=== PATIENT | male | born 1955 | race Caucasian/White ===

== ENCOUNTER 2016-11-05 20:54 | Inpatient (IN) | payer BC ==
--- NOTE | 2016-11-05 23:06 | DR.GENAD ---
HPI - Complaint/Symptoms Chief Complaint Doctors Comments: Patient complains of infection in his left foot with little toe infection getting worst for the past week. States he went to see his foot doctor three days ago and he drained his left foot and put him on Flagyl, Augmentin and Bactroban oint but it has gotten worst. States he was hospitalized eleven days for infection in his great toe few months ago and almost lost his toes then. He has been having fever, chills but denies nausea, vomiting cold or cough. State he is a patient of Dr. New and he has been taking his insulin and medicine as directed. He noticed a large red rash on the lower left abdomen the past 24 hours and he denies any recent trauma other than injection self with insulin. States he had a tetanus the last time he was in the hospital about 4-5 months ago. Chief Complaint:: "I got a toe about to rott off. I have been here before with another toe, but this is a different toe (little toe on left foot). I also have a rash on my left side. I don't know if it is a side effect of some medicine that Dr. Estrella has given me or what." Self Treatment fo Chief Complaint: Taking the medication that Dr. Estrella has given. Metronidazole 250, Amox/K Clav 875 - Nurses notes reviewed Nurses Notes Review: Yes - Source History Provided: Patient, Family Member - Mode of Arrival Mode of Arrival: Ambulatory - Timing Onset of Chief Complaint: 11/01/16 Came on: Gradually - Duration Duration: Constant How lon Duration: Weeks - Location Location: left foot - Severity Severity: Moderate - Modifying Factors Worsens:: nothing Improves:: nothing PMH - PMH Past Medical History: Yes Past Medical History: Diabetes, Hypertension Past Surgical History: Yes Surgical History: Ortho Surgery - Family History History of Family Medical Conditions: Yes Family Medical History: [place], Hypertension - Social History Does patient currently use any type of tobacco product: No Have you used tobacco products in the last 12 months: No Type of Tobacco Use: None Does any household member use tobacco: No Do you use any recreational Drugs:: No Lives With: Spouse Lives Where: Home - infectious screening In the last 2 months have you had wt loss of >10#?: NO Have you had fever, night sweats or hemotysis?: No Have you traveled outside the country in the last 6 months?: No Isolation: Standard ROS - Review of Systems Constitutional: No Symptoms Reported, Chills, Fever. negative: See HPI, Diaphoresis, Malaise, Weakness, Irritable, Fatigue, Loss of Appetite, Other Eyes: No Symptoms Reported ENTM: No Symptoms Reported. negative: See HPI, Ear Pain, Ear Discharge, Pulling on Ears, Hearing Loss, Nose Pain, Nose Discharge, Epistaxis, Nose Congestion, Mouth Pain, Mouth Swelling, Loose Teeth, Drooling, Throat Pain, Throat Swelling, Ear Foreign Body Respiratoy: No Symptoms Reported. negative: See HPI, Productive Cough, Non- Productive Cough, Moist Cough, Dry Cough, Hacking Cough, Barking Cough, Brassy Cough, Orthopnea, Short of Breath, Stridor, Wheezing, Hemoptysis, Other Cardiovascular: No Symptoms Reported. negative: See HPI, Chest Pain, Edema, Palpitations, Syncope, Cyanosis, Skin Mottling, Other Gastrointestinal/Abdominal: No Symptoms Reported Genitourinary: No Symptoms Reported. negative: See HPI, Discharge, Dysuria, Frequency, Hematuria, Pain, Bleeding, Other Neurological: No Symptoms Reported, Problems Walking (left foot infection with swelling). negative: See HPI, Anxiety, Depressed, Emotional Problems, Headache , Numbness, Paresthesia, Pre-existing Deficit, Seizure, Tingling, Tremors, Weakness, Dizziness, Speech Problem, Other Musculoskeletal: No Symptoms Reported, Left, Leg (ulcerations lower left leg with swelling of foot with blisters on toes), Foot Integumentary: Change in Color, Lesions, Wound (left foot with blisters) Hematologic/Lymphatic: No Symptoms Reported Endocrine: No Symptoms Reported Psychiatric: No Symptoms Reported PE - Vital Signs Vitals: Temperature 98.1 F Pulse Rate 91 Respiratory Rate 16 Blood Pressure [Right Arm] 146/74 Blood Pressure [Left Arm] 146/75 Blood Pressure 141/70 O2 Sat by Pulse Oximetry 97 - General Limitations: No Limitations General Appearance: Alert, In Distress (moderate) - Head Head Exam: Normal Inspection, Atraumatic, Normocephalic - Eyes Eye exam: Normal Appearance, PERRL, EOMI. negative: Scleral Icterus, Conjunctival Injection, Nystagmus, Miosis, Mydrasis, Periorbital Swelling, Periorbital Tenderness, Other - ENT ENT Exam: Normal Exam, Normal Oropharynx, Normal External Ear Exam, Mucous Membranes Moist, TM's Normal Bilaterally External Ear Exam: Normal External Inspection TM/Canal Exam: Bilateral Normal Nose Exam: Normal Nose Exam Mouth Exam: Normal Inspection Throat Exam: Normal Inspection - Neck Neck Exam: Normal Inspection, Full ROM, Trachea Midline. negative: Tenderness, Meningismus, Lymphadenopathy, Thyromegaly, Other - Chest Chest Inspection: Normal Inspection, Symmetric Chest Wall Rise. negative: Tenderness, Rash, Abscess, Other - Respiratory Respiratory Exam: Normal Lung Sounds Bilat Respiratory Exam: Bilateral Clear to Auscultation - Cardiovascular Cardiovascular Exam: Regular Rate, Normal Rhythm, Normal Heart Sounds - Abdominal Exam Abdominal Exam: Normal Inspection, Normal Bowel Sounds, Soft Abdominal Tenderness: negative: RUQ, RLQ, LUQ, LLQ, Epigastrium, Suprapubic, Diffuse, Mild, Moderate, Severe, Other - Extremities Extremities Exam: Normal Inspection, Full ROM, Tenderness (left foot with swelling, erythema), Normal Capillary Refill, Joint Swelling (left foot swelling ) - Back Back Exam: Normal Inspection, Full ROM - Neurologic Neurological Exam: Alert, Oriented X3, CN II-XII Intact, Reflexes Normal. negative: Normal Gait (gait not tested) - Psychiatric Psychiatric Exam: Normal Affect, Normal Mood - Skin Skin Exam: Warm, Dry, Intact, Normal Color, Erythema (left foot with swelling and erythema) Course - Consultation Called: : Call Returned: : (Dr. Garzon to admit) - Education/Counseling Education/Counseling: Patient, Family Educated On: Treatment, Diagnosis, Prognosis, Needs for Follow Up ROR - Labs Reviewed Laboratory Results Reviewed?: Yes (all labs and x-ray results reviewed and discussed with patient) Result Diagrams: 11/05/16 23:10 11/05/16 23:10 Laboratory: WBC 8.5 X10^3/uL (3.6-10.0) 11/05/16 23:10 RBC 4.50 X10^6/uL (4.7-6.0) L 11/05/16 23:10 Hgb 11.8 g/dL (13.5-18.0) L 11/05/16 23:10 Hct 35.9 % (42.0-54.0) L 11/05/16 23:10 MCV 79.7 fL (80.0-100.0) L 11/05/16 23:10 MCH 26.1 pg (27.0-34.0) L 11/05/16 23:10 MCHC 32.8 g/dL (33.0-35.0) L 11/05/16 23:10 RDW 14.2 % (11.6-16.5) 11/05/16 23:10 Plt Count 266 X10^3/uL (150.0-450.0) 11/05/16 23:10 MPV 6.9 fL (7.4-11.0) L 11/05/16 23:10 Neut % 55.9 % (42.0-75.0) 11/05/16 23:10 Lymph % 29.1 % (21.0-51.0) 11/05/16 23:10 [place] % 11.4 % (0.0-13.0) 11/05/16 23:10 Eos % 3.1 % (0.9-2.9) H 11/05/16 23:10 Baso % 0.5 % (0.2-1.0) 11/05/16 23:10 Neut # 4.8 x10^3/uL (2.2-4.8) 11/05/16 23:10 Lymph # 2.5 X10^3/uL (1.3-2.9) 11/05/16 23:10 [place] # 1.0 x10^3/uL (0.3-0.8) H 11/05/16 23:10 Eos # 0.3 x10^3/uL (0.0-0.2) H 11/05/16 23:10 Baso # 0.0 X10^3/uL (0.0-0.1) 11/05/16 23:10 Absolute Nucleated RBC 0.0 /100WBC 11/05/16 23:10 INR Target Range - 11/05/16 23:10 INR 1.12 (0.8-1.3) 11/05/16 23:10 PTT 30.7 SECONDS (22.9-36.5) 11/05/16 23:10 PTT Comment - 11/05/16 23:10 D-Dimer 734 ng/mL (0-400) H* 11/05/16 23:10 Sodium 138 mmol/L (136-145) 11/05/16 23:10 Corrected Sodium 142 mmol/L (136-145) 11/05/16 23:10 Potassium 4.2 mmol/L (3.5-5.1) 11/05/16 23:10 Chloride 103 mmol/L (98-107) 11/05/16 23:10 Carbon Dioxide 29.8 mmol/L (21-32) 11/05/16 23:10 BUN 22 mg/dL (7-18) H 11/05/16 23:10 Creatinine 1.26 mg/dL (0.70-1.30) 11/05/16 23:10 Est GFR (MDRD) Af Amer > 60 (>60) 11/05/16 23:10 Est GFR (MDRD) Non-Af > 60 (>60) 11/05/16 23:10 Glucose 261 mg/dL (65-99) H 11/05/16 23:10 Lactic Acid 1.2 mmol/L (0.4-2.0) 11/05/16 23:10 Calcium 8.8 mg/dL (8.5-10.1) 11/05/16 23:10 Corrected Calcium 9.8 mg/dL (8.5-10.1) 11/05/16 23:10 Total Bilirubin 0.40 mg/dL (0.2-1.0) 11/05/16 23:10 AST 17 Units/L (15-37) 11/05/16 23:10 ALT 20 Units/L (12-78) 11/05/16 23:10 Alkaline Phosphatase 89 Units/L (46-116) 11/05/16 23:10 Total Protein 7.0 g/dL (6.4-8.2) 11/05/16 23:10 Albumin 2.8 g/dL (3.4-5.0) L 11/05/16 23:10 Globulin 4.2 g/dL (2.5-4.5) 11/05/16 23:10 Albumin/Globulin Ratio 0.7 Ratio (1.1-2.1) L 11/05/16 23:10 Amylase 28 Units/L (25-115) 11/05/16 23:10 Lipase 105 Units/L (73-393) 11/05/16 23:10 Specimen Type Clean catch urine 11/05/16 00:01 Urine Color Dark yellow (YELLOW) 11/05/16 00:01 Urine Appearance Clear (CLEAR) 11/05/16 00:01 Urine pH 5.0 (5.0 - 8.0) 11/05/16 00:01 Ur Specific [place] 1.025 (1.000-1.030) 11/05/16 00:01 Urine Protein 2+ (NEGATIVE) 11/05/16 00:01 Urine Glucose (UA) 3+ (NEGATIVE) 11/05/16 00: Urine Ketones Negative (NEGATIVE) 11/05/16 00:01 Urine Occult Blood 2+ (NEGATIVE) 11/05/16 00:01 Urine Nitrite Negative (NEGATIVE) 11/05/16 00: Urine Bilirubin Negative (NEGATIVE) 11/05/16 00: Urine Urobilinogen Normal (NORMAL) 11/05/16 00:01 Ur Leukocyte Esterase 1+ (NEGATIVE) 11/05/16 00:01 Urine RBC 0-3 /HPF (NEGATIVE) 11/05/16 00:01 Urine WBC 0-1 /HPF (NEGATIVE) 11/05/16 00:01 Ur Squamous Epith Cells Rare /HPF (NEGATIVE) 11/05/16 00:01 Urine Bacteria Negative /HPF (NEGATIVE) 11/05/16 00:01 Hyaline Casts Few /LPF (NEGATIVE) 11/05/16 00:01 Urine Mucus Few /HPF (NEGATIVE) 11/05/16 00:01 Ur Culture Indicated? No/not indicated 11/05/16 00:01 - XRAY XRAY Interpreted by: Radiologist (left foot: Soft tissue swelling of the dorsum of the forefoot and destruction of the doraal base of the proximal phalanx of the 5th digit consistent with cellulitis and osteomyelitis.) XRAY Findings: Doppler venous studies: Normal left lower extremity venous exam. CXR: Nl - Diagnosis Discharge Problem: Cellulitis of left foot, osteomyelitis of 5th toe, Microcytic anemia Diabetes mellitus Qualifiers: Diabetes mellitus type: type 1 Chronic kidney disease stage: stage 3 (moderate ) - Discharge Plan Disposition: ADMITTED INPATIENT Condition: Stable - Follow ups/Referrals Follow ups/Referrals: Renaldo New [Primary Care Provider] - 3 days - Instructions
--- NOTE | 2016-11-05 23:36 | RAD ---
EXAM: Chest X-ray INDICATION: Fever COMPARISION: Prior exam from April 15, 2016 TECHNIQUE: Single view FINDINGS: The lungs are clear and the lung volumes are within normal limits. No pleural effusion or pneumothor ax. The cardiac silhouette and mediastinum are normal. The regional skeleton is intact. IMPRESSION: No acute abnormality identified Reported By:
[2016-11-05 23:42] LABS: BASOPHILS % (AUTO) 0.5 % (0.2-1.0); EOSINOPHILS # (AUTO) 0.3 x10^3/uL (0.0-0.2); EOSINOPHILS % (AUTO) 3.1 % (0.9-2.9); HEMATOCRIT 35.9 % (42.0-54.0); HEMOGLOBIN 11.8 g/dL (13.5-18.0); LYMPHOCYTES # (AUTO) 2.5 X10^3/uL (1.3-2.9); LYMPHOCYTES % (AUTO) 29.1 % (21.0-51.0); MEAN CORPUSCULAR HEMOGLOBIN 26.1 pg (27.0-34.0); MEAN CORPUSCULAR HGB CONC 32.8 g/dL (33.0-35.0); MEAN CORPUSCULAR VOLUME 79.7 fL (80.0-100.0); MEAN PLATELET VOLUME 6.9 fL (7.4-11.0); MONOCYTES % (AUTO) 11.4 % (0.0-13.0); NEUTROPHILS # (AUTO) 4.8 x10^3/uL (2.2-4.8); NEUTROPHILS % (AUTO) 55.9 % (42.0-75.0); PLATELET COUNT 266 X10^3/uL (150.0-450.0); RED CELL DISTRIBUTION WIDTH 14.2 % (11.6-16.5); WHITE BLOOD COUNT 8.5 X10^3/uL (3.6-10.0)
--- NOTE | 2016-11-05 23:44 | RAD ---
EXAM: Left foot x-ray INDICATION: Pain, infected 5th digit COMPARISION: None TECHNIQUE: AP, lateral, and oblique, three views FINDINGS: No acute fracture or dislocation. There is destruction of the dorsal base of the proximal phalanx of the 5th digit. The joint spaces are preserved. The soft tissues are edematous along the dorsum of t he forefoot. No radiopaque foreign body. IMPRESSION: The soft tissue swelling of the dorsum of the forefoot and destruction of the dorsal base of the pro ximal phalanx of the 5th digit are consistent with cellulitis and osteomyelitis. An MRI of the foot is recommended to evaluate the extent of disease. Reported By:
[2016-11-05 23:46] LABS: ALANINE AMINOTRANSFERASE 20 Units/L (12-78); ALBUMIN 2.8 g/dL (3.4-5.0); ALKALINE PHOSPHATASE 89 Units/L (46-116); AMYLASE 28 Units/L (25-115); ASPARTATE AMINO TRANSFERASE 17 Units/L (15-37); BLOOD UREA NITROGEN 22 mg/dL (7-18); CALCIUM 8.8 mg/dL (8.5-10.1); CARBON DIOXIDE 29.8 mmol/L (21-32); CHLORIDE 103 mmol/L (98-107); COR CA(FOR HYPOALB) 9.8 mg/dL (8.5-10.1); COR NA(FOR HYPERGLY) 142 mmol/L (136-145); CREATININE 1.26 mg/dL (0.70-1.30); GLUCOSE 261 mg/dL (65-99); LIPASE 105 Units/L (73-393); SODIUM 138 mmol/L (136-145); eGFR BLACK RACES > 60 (>60); eGFR NON BLACK RACES > 60 (>60)
[2016-11-05 23:49] LABS: LACTIC ACID 1.2 mmol/L (0.4-2.0)
[2016-11-06 00:04] LABS: D DIMER 734 ng/mL (0-400)
[2016-11-06 00:15] LABS: BILIRUBIN,URINE NEGATIVE (NEGATIVE); BLOOD/HEMOGLOBIN,URINE 2+ (NEGATIVE); GLUCOSE, URINE 3+ (NEGATIVE); KETONES,URINE NEGATIVE (NEGATIVE); LEUKOCYTE ESTERASE ,URINE 1+ (NEGATIVE); NITRITES,URINE NEGATIVE (NEGATIVE); PROTEIN,URINE 2+ (NEGATIVE); UROBILINOGEN,URINE NORMAL (NORMAL)
[2016-11-06 00:23] LABS: APPEARANCE,URINE CLEAR (CLEAR); BACTERIA,URINE NEGATIVE /HPF (NEGATIVE); COLOR,URINE DARK YELLOW (YELLOW); HYALINE CASTS, URINE FEW /LPF (NEGATIVE); MUCUS,URINE FEW /HPF (NEGATIVE); RBC,URINE 0-3 /HPF (NEGATIVE); SQUAMOUS EPITHELIAL CELL,UR RARE /HPF (NEGATIVE)
--- NOTE | 2016-11-06 00:57 | VAS ---
Exam: Left lower extremity ultrasound exam History: Lower extremity swelling/pain Comparison: None Technique: Real-time duplex scan of the lower extremity venous system was performed using B-mode/gra yscale imaging, Doppler spectral analysis, and color flow. Findings: Evaluation of the deep veins of the left lower extremity from the common femoral vein thr ough the popliteal vein demonstrated normal patency and no evidence of DVT. There was normal compre ssibility throughout the deep venous system. There was normal augmentation response, Valsalva respo nse, and respiratory phasicity. The deep veins below the knee were patent. Conclusion: Normal left lower extremity venous exam. No evidence of DVT. Reported By:
[2016-11-06] MEDS ORDERED: XANAX PO PRN (01:32)
[2016-11-06] MEDS ORDERED: NORCO 5/325 MG TAB PO PRN (01:32)
[2016-11-06] MEDS ORDERED: MORPHINE SULFATE INJ 2 MG IVP PRN (01:32)
[2016-11-06] MEDS ORDERED: PHENERGAN TAB 25 MG PO PRN (01:32)
[2016-11-06] MEDS ORDERED: MOTRIN TAB 600 MG PO PRN (01:32)
[2016-11-06] MEDS ORDERED: HUMALOG SC PRN (01:39)
[2016-11-06] MEDS ORDERED: MERREM VIAL 1,000 MG in NS 100 ML IV 100 ML IV SCH (03:00)
[2016-11-06] MEDS ORDERED: NS 100 ML IV 100 ML IV ONE (03:09)
[2016-11-06] MEDS ORDERED: NS 1/2 1000 ML IV 1,000 ML IV ONE ×15 (03:09→13:07)
[2016-11-06] MEDS ORDERED: MERREM VIAL ONE (03:10)
[2016-11-06] MEDS: MERREM VIAL 1,000 MG in NS 100 ML IV 100 ML IV SCH ×4 (03:27→21:06)
[2016-11-06] MEDS: NS 1/2 1000 ML IV 1,000 ML IV SCH ×4 (03:29→20:37)
[2016-11-06 05:34] VITALS: BMI 33.5
[2016-11-06 05:35] LABS: ALANINE AMINOTRANSFERASE 15 Units/L (12-78); ALBUMIN 2.6 g/dL (3.4-5.0); ALKALINE PHOSPHATASE 75 Units/L (46-116); ASPARTATE AMINO TRANSFERASE 18 Units/L (15-37); BLOOD UREA NITROGEN 20 mg/dL (7-18); CALCIUM 8.7 mg/dL (8.5-10.1); CARBON DIOXIDE 28.7 mmol/L (21-32); CHLORIDE 106 mmol/L (98-107); COR CA(FOR HYPOALB) 9.8 mg/dL (8.5-10.1); COR NA(FOR HYPERGLY) 141 mmol/L (136-145); CREATININE 1.08 mg/dL (0.70-1.30); GLUCOSE 149 mg/dL (65-99); SODIUM 140 mmol/L (136-145); TOTAL PROTEIN 6.7 g/dL (6.4-8.2); eGFR BLACK RACES > 60 (>60); eGFR NON BLACK RACES > 60 (>60)
[2016-11-06] MEDS: LOVENOX INJ 40 MG SYR SC SCH (08:41)
[2016-11-06] MEDS ORDERED: [UNRECOGNIZED DRUG - OTHER] PO SCH (10:45)
[2016-11-06] MEDS ORDERED: GLUCOPHAGE PO SCH (11:00)
[2016-11-06] MEDS ORDERED: LEVEMIR SC SCH ×2 (11:00→21:00)
[2016-11-06] MEDS ORDERED: GLUCOPHAGE ONE (11:34)
[2016-11-06] MEDS: PLAVIX PO SCH (11:45)
[2016-11-06] MEDS: FLOMAX PO SCH (11:46)
[2016-11-06] MEDS: SYNTHROID 50 mcg TAB PO SCH (11:46)
[2016-11-06] MEDS: HUMULIN R SUBCUT PRN (13:13)
[2016-11-06] MEDS: ACTOS PO SCH (18:42)
[2016-11-06] MEDS: GLUCOPHAGE XR PO SCH (20:29)
[2016-11-06] MEDS: [UNRECOGNIZED DRUG - OTHER] PO SCH (20:39)
[2016-11-06] MEDS: SNACK - Diabetic Appropriate PO SCH (20:42)
[2016-11-07] MEDS ORDERED: NS 1/2 1000 ML IV 1,000 ML IV ONE ×2 (00:08→09:12)
[2016-11-07] MEDS: NS 1/2 1000 ML IV 1,000 ML IV SCH ×3 (03:02→20:15)
[2016-11-07 04:37] LABS: BASOPHILS # (AUTO) 0.1 X10^3/uL (0.0-0.1); BASOPHILS % (AUTO) 0.8 % (0.2-1.0); EOSINOPHILS # (AUTO) 0.3 x10^3/uL (0.0-0.2); EOSINOPHILS % (AUTO) 4.7 % (0.9-2.9); HEMATOCRIT 34.5 % (42.0-54.0); HEMOGLOBIN 11.6 g/dL (13.5-18.0); LYMPHOCYTES # (AUTO) 2.1 X10^3/uL (1.3-2.9); LYMPHOCYTES % (AUTO) 30.1 % (21.0-51.0); MEAN CORPUSCULAR HEMOGLOBIN 26.3 pg (27.0-34.0); MEAN CORPUSCULAR HGB CONC 33.6 g/dL (33.0-35.0); MEAN CORPUSCULAR VOLUME 78.4 fL (80.0-100.0); MEAN PLATELET VOLUME 6.5 fL (7.4-11.0); MONOCYTES # (AUTO) 0.8 x10^3/uL (0.3-0.8); MONOCYTES % (AUTO) 11.4 % (0.0-13.0); NEUTROPHILS # (AUTO) 3.7 x10^3/uL (2.2-4.8); PLATELET COUNT 291 X10^3/uL (150.0-450.0); WHITE BLOOD COUNT 6.9 X10^3/uL (3.6-10.0)
[2016-11-07 04:44] LABS: BLOOD UREA NITROGEN 18 mg/dL (7-18); CALCIUM 8.7 mg/dL (8.5-10.1); CARBON DIOXIDE 28.5 mmol/L (21-32); CHLORIDE 105 mmol/L (98-107); CREATININE 0.97 mg/dL (0.70-1.30); GLUCOSE 86 mg/dL (65-99); SODIUM 141 mmol/L (136-145); eGFR BLACK RACES > 60 (>60); eGFR NON BLACK RACES > 60 (>60)
[2016-11-07] MEDS: MERREM VIAL 1,000 MG in NS 100 ML IV 100 ML IV SCH ×3 (05:34→21:43)
[2016-11-07 08:26] LABS: ALBUMIN 2.5 g/dL (3.4-5.0); BILIRUBIN,DIRECT 0.08 mg/dL (0-0.2); TOTAL PROTEIN 6.5 g/dL (6.4-8.2)
[2016-11-07] MEDS: GLUCOPHAGE XR PO SCH (08:58)
[2016-11-07] MEDS: PLAVIX PO SCH (08:58)
[2016-11-07] MEDS: ZESTRIL TAB 40 MG PO SCH (08:59)
[2016-11-07] MEDS: ACTOS PO SCH (08:59)
[2016-11-07] MEDS: LOVENOX INJ 40 MG SYR SC SCH (08:59)
[2016-11-07] MEDS: SYNTHROID 50 mcg TAB PO SCH (08:59)
[2016-11-07] MEDS: FLOMAX PO SCH (08:59)
[2016-11-07] MEDS ORDERED: VANCOMYCIN 1 GM PREMIX (ADDVANTAGE) 250 ML IV SCH ×2 (10:00→14:00)
[2016-11-07] MEDS ORDERED: PHARMACY CONSULT - VANCOMYCIN XX SCH (10:00)
[2016-11-07] MEDS ORDERED: NS 250 ML IV 250 ML IV ONE ×2 (10:26→21:07)
[2016-11-07] MEDS ORDERED: VANCOMYCIN HCL 1 GM VIAL ONE (10:26)
[2016-11-07] MEDS: VANCOMYCIN HCL 1 GM VIAL IV SCH ×3 (10:39→21:43)
[2016-11-07] MEDS: ZINC SULFATE PO SCH (10:40)
[2016-11-07] MEDS: VITAMIN C PO SCH ×2 (10:40→21:43)
[2016-11-07] MEDS: JUVEN PO SCH ×2 (10:40→21:41)
[2016-11-07] MEDS: HUMALOG SC SCH ×2 (12:24→17:14)
--- NOTE | 2016-11-07 14:54 | PCM.PROG ---
Progress Note - Progress Note for Day of Date: 11/07/16 - Subjective Subjective: PATIENT RESTS IN BED. ON EXAMINATION, CELLULITIS IS NOTED TO LEFT LOWER EXTREMITY WITH FOOT ULCER NOTED TO 5TH TOE, LEFT FOOT. MODERATE PURULENT DRAINAGE NOTED. PATIENT REPORTS NO PAIN TO LEFT FOOT. PATIENT POINTS OUT AN AREA ON HIS LEFT ABDOMEN THAT IS REDDENED WITH CELLULITIS AND PETECHIAE NOTED. PATIENT STATES HE INJECTED INSULIN INTO THIS AREA 2 NIGHTS AGO AND WOKE UP THE NEXT MORNING WITH REDNESS AND WARMTH TO AREA. CELLULITIS IS THE SIZE OF A SMALL DINNER PLATE. ORTHOPEDIC SURGEON HAS BEEN CONSULTED. CBC WNL EXCEPT: H/ H 11.6/34.5. CMP WNL EXCEPT: ALBUMIN 2.5. CRP 47.70. ESR 36. WE WILL START VANCOMYCIN IV, CONTINUE MERREM, WOUND CARE, AND AWAIT ORTHO CONSULT. WE WILL FOLLOW UP IN AM WITH ADDITIONAL LABS. - Past Medical Family Social History Past Med/Fam/Surg Hx: No changes since H&P Allergies: Allergies No Known Drug Allergy Allergy (Verified 11/15/12 15:43) - Review of Systems ROS: No change since H&P - Vital Signs and I&O's Vital Signs: Temperature 97.8 F Pulse Rate [Right Brachial] 75 Pulse Rate [Radial] 82 Respiratory Rate 20 Blood Pressure [Right Arm] 146/78 Blood Pressure [Left Arm] 92/50 O2 Sat by Pulse Oximetry 96 Intake and Output: Intake & Output 11/05/16 11/06/16 11/07/16 11/08/16 10:59 11:59 11:59 11:59 Intake Total 3420 Balance 3420 - Physical Exam Oriented: Normal, Time, Person, Place Eyes: Normal. negative: Blurred Vision, Diplopia, Discharge, Pain, Redness, Photophobia Ear: Normal. negative: Swelling, Ecchymosis, Hemotypanum, Abrasion, Laceration Nose: Normal. negative: Injected, Discharge, Blood Throat: Normal. negative: Tonsillar Hypertrophy, Red, Exudate Respiratory: Normal Cardiovascular: Normal : Normal. negative: Dysuria, Hematuria, Frequency Auscultation: Bowel Sounds: Normal. negative: Bruit Palpation: Normal. negative: Spleen Enlarged, Liver Enlarged, Mass Pulsatile Tenderness: Other (Cellulitis Left Abdomen). negative: Rebound, Guarding, Rigidity Skin: Wound (Cellulitis LLE; Diabetic Foot ulcer to Left 5th toe) Musculoskeletal: Instability Psychiatric: Normal Mood Description: Calm, Appropriate Affect: Normal Speech Pattern: Clear, Appropriate - Laboratory and Diagnostics Result Diagrams: 11/07/16 04:15 11/07/16 04:15 Labs: 11/06/16 04:46 Toe - Left Little Gram Stain - Final 11/06/16 04:46 Toe - Left Little Wound Culture - Preliminary Laboratory WBC 6.9 X10^3/uL (3.6-10.0) 11/07/16 04:15 RBC 4.40 X10^6/uL (4.7-6.0) L 11/07/16 04:15 Hgb 11.6 g/dL (13.5-18.0) L 11/07/16 04:15 Hct 34.5 % (42.0-54.0) L 11/07/16 04:15 MCV 78.4 fL (80.0-100.0) L 11/07/16 04:15 MCH 26.3 pg (27.0-34.0) L 11/07/16 04:15 MCHC 33.6 g/dL (33.0-35.0) 11/07/16 04:15 RDW 14.0 % (11.6-16.5) 11/07/16 04:15 Plt Count 291 X10^3/uL (150.0-450.0) 11/07/16 04:15 MPV 6.5 fL (7.4-11.0) L 11/07/16 04:15 Neut % 53.0 % (42.0-75.0) 11/07/16 04:15 Lymph % 30.1 % (21.0-51.0) 11/07/16 04:15 [place] % 11.4 % (0.0-13.0) 11/07/16 04:15 Eos % 4.7 % (0.9-2.9) H 11/07/16 04:15 Baso % 0.8 % (0.2-1.0) 11/07/16 04:15 Neut # 3.7 x10^3/uL (2.2-4.8) 11/07/16 04:15 Lymph # 2.1 X10^3/uL (1.3-2.9) 11/07/16 04:15 [place] # 0.8 x10^3/uL (0.3-0.8) 11/07/16 04:15 Eos # 0.3 x10^3/uL (0.0-0.2) H 11/07/16 04:15 Baso # 0.1 X10^3/uL (0.0-0.1) 11/07/16 04:15 Absolute Nucleated RBC 0.0 /100WBC 11/07/16 04:15 ESR 36 MM/HOUR (0-15) H 11/07/16 04:15 INR Target Range - 11/05/16 23:10 INR 1.12 (0.8-1.3) 11/05/16 23:10 PTT 30.7 SECONDS (22.9-36.5) 11/05/16 23:10 PTT Comment - 11/05/16 23:10 D-Dimer 734 ng/mL (0-400) H* 11/05/16 23:10 Sodium 141 mmol/L (136-145) 11/07/16 04:15 Corrected Sodium TNP 11/07/16 04:15 Potassium 4.2 mmol/L (3.5-5.1) 11/07/16 04:15 Chloride 105 mmol/L (98-107) 11/07/16 04:15 Carbon Dioxide 28.5 mmol/L (21-32) 11/07/16 04:15 BUN 18 mg/dL (7-18) 11/07/16 04:15 Creatinine 0.97 mg/dL (0.70-1.30) 11/07/16 04:15 Est GFR (MDRD) Af Amer > 60 (>60) 11/07/16 04:15 Est GFR (MDRD) Non-Af > 60 (>60) 11/07/16 04:15 Glucose 86 mg/dL (65-99) 11/07/16 04:15 Lactic Acid 1.2 mmol/L (0.4-2.0) 11/05/16 23:10 Calcium 8.7 mg/dL (8.5-10.1) 11/07/16 04:15 Corrected Calcium 9.8 mg/dL (8.5-10.1) 11/06/16 05:00 Total Bilirubin 0.30 mg/dL (0.2-1.0) 11/07/16 04:15 Direct Bilirubin 0.08 mg/dL (0-0.2) 11/07/16 04:15 Indirect Bilirubin 0.22 mg/dL (0.2-0.8) 11/07/16 04:15 AST 17 Units/L (15-37) 11/07/16 04:15 ALT 18 Units/L (12-78) 11/07/16 04:15 Alkaline Phosphatase 56 Units/L (46-116) 11/07/16 04:15 C-Reactive Protein 47.70 mg/L (0-3.0) H 11/07/16 04:15 Total Protein 6.5 g/dL (6.4-8.2) 11/07/16 04:15 Albumin 2.5 g/dL (3.4-5.0) L 11/07/16 04:15 Globulin 4.0 g/dL (2.5-4.5) 11/07/16 04:15 Albumin/Globulin Ratio 0.6 Ratio (1.1-2.1) L 11/07/16 04:15 Amylase 28 Units/L (25-115) 11/05/16 23:10 Lipase 105 Units/L (73-393) 11/05/16 23:10 Specimen Type Clean catch urine 11/05/16 00:01 Urine Color Dark yellow (YELLOW) 11/05/16 00:01 Urine Appearance Clear (CLEAR) 11/05/16 00:01 Urine pH 5.0 (5.0 - 8.0) 11/05/16 00:01 Ur Specific [place] 1.025 (1.000-1.030) 11/05/16 00:01 Urine Protein 2+ (NEGATIVE) 11/05/16 00:01 Urine Glucose (UA) 3+ (NEGATIVE) 11/05/16 00:01 Urine Ketones Negative (NEGATIVE) 11/05/16 00:01 Urine Occult Blood 2+ (NEGATIVE) 11/05/16 00:01 Urine Nitrite Negative (NEGATIVE) 11/05/16 00:01 Urine Bilirubin Negative (NEGATIVE) 11/05/16 00:01 Urine Urobilinogen Normal (NORMAL) 11/05/16 00:01 Ur Leukocyte Esterase 1+ (NEGATIVE) 11/05/16 00:01 Urine RBC 0-3 /HPF (NEGATIVE) 11/05/16 00:01 Urine WBC 0-1 /HPF (NEGATIVE) 11/05/16 00:01 Ur Squamous Epith Cells Rare /HPF (NEGATIVE) 11/05/16 00:01 Urine Bacteria Negative /HPF (NEGATIVE) 11/05/16 00:01 Hyaline Casts Few /LPF (NEGATIVE) 11/05/16 00:01 Urine Mucus Few /HPF (NEGATIVE) 11/05/16 00:01 Ur Culture Indicated? No/not indicated 11/05/16 00:01 - Plan (1) Cellulitis of left foot Status: Acute Plan: START VANCOMYCIN, CONTINUE MERREM, ORTHO CONSULT, MONITOR. (2) Cellulitis of abdominal wall Status: Acute Plan: CONTINUE IV ANTIBIOTICS, MONITOR. (3) Diabetic ulcer of left foot Status: Chronic Qualifiers: Diabetes mellitus type: type 2 Qualified Code(s): E11.621 - Type 2 diabetes mellitus with foot ulcer Plan: CONTINUE WOUND CARE, MONITOR. 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 (5) Hypertension Status: Chronic Qualifiers: Hypertension type: essential hypertension Qualified Code(s): I10 - Essential (primary) hypertension (6) GERD (gastroesophageal reflux disease) Status: Chronic Qualifiers: Esophagitis presence: esophagitis presence not specified Qualified Code(s) : K21.9 - Gastro-esophageal reflux disease without esophagitis (7) History of pulmonary embolism Status: Chronic (8) Hyperlipidemia Status: Chronic Qualifiers: Hyperlipidemia type: mixed hyperlipidemia Qualified Code(s): E78.2 - Mixed hyperlipidemia (9) Arthritis Status: Chronic (10) Microcytic anemia Status: Chronic
--- NOTE | 2016-11-07 16:04 | DR.CONSULT ---
Consult - Consultation for Day of: Date: 11/07/16 (Thanks for the consult) - Chief Complaint Chief Complaint: left foot 5th toe osteomyeleitis, early gangrenous changes. - Allergies Allergies/Adverse Reactions: Allergies Allergy/AdvReac Type Severity Reaction Status Date / Time No Known Drug Allergy Allergy Verified 11/15/12 15:43 - History of Present Illness History of Present Illness: left foot osteo - Past Medical History Past Medical History: Diabetes, Hypertension Additional Medical History: diabetic neuropathy. has very less sensation in the left foot. - Past Surgical History Surgical History: Ortho Surgery - Family History Family Medical History: [place], Hypertension - Social History Does patient currently use any type of tobacco product: No Have you used tobacco products in the last 12 months: No Type of Tobacco Use: None Does any household member use tobacco: No Alcohol Use: None Drug Use: None - Medications Home Medications: Amoxicillin & Pot Clavulanate [Amoxicillin/Clavulanate P 875-125 mg] 1 tab PO BID 11/05/16 [History Confirmed 11/06/16] Insulin Lispro (Humalog) [HumaLOG INSULIN 10 ML VIAL *] 12 units SC TIDWM [History Confirmed 11/06/16] Levothyroxine Sodium [SYNTHROID 50 mcg *] 1 tab PO DAILY 11/05/16 [History Confirmed 11/06/16] Metformin HCl [GLUCOPHAGE 500 MG *] 1 tab PO BID 11/05/16 [History Confirmed 08/13] Metronidazole [Metronidazole] 1 tab PO BID 11/05/16 [History Confirmed 11/06/16] Mupirocin [Mupirocin] 1 applic TOP TID 11/05/16 [History Confirmed 11/06/16] Tamsulosin HCl [FLOMAX (GENERIC) 0.4 MG *] 1 cap PO DAILY 11/05/16 [History Confirmed 11/06/16] - Physical Exam Vital Signs: Temperature 97.8 F Pulse Rate [Right Brachial] 75 Pulse Rate [Radial] 82 Respiratory Rate 20 Blood Pressure [Right Arm] 146/78 Blood Pressure [Left Arm] 92/50 O2 Sat by Pulse Oximetry 96 Musculoskeletal: Left, Foot, Swelling (early gangrenous changes seen. no abcess seen clinically. ) - Plan Plan: MR left foot - look for extend of osteo- abcess. currently on plavix- we will stop plavix and decide on surgery after I examine again on monday/ post MRI
[2016-11-07] MEDS: GLUCOPHAGE PO SCH (16:59)
[2016-11-07] MEDS: SNACK - Diabetic Appropriate PO SCH (21:40)
[2016-11-07] MEDS: LEVEMIR SC SCH (21:41)
[2016-11-07] MEDS: [UNRECOGNIZED DRUG - OTHER] PO SCH (21:43)
[2016-11-08] MEDS: NS 1/2 1000 ML IV 1,000 ML IV SCH ×4 (03:59→21:56)
[2016-11-08] MEDS ORDERED: NS 1/2 1000 ML IV 1,000 ML IV ONE ×2 (05:05→21:49)
[2016-11-08] MEDS ORDERED: NS 250 ML IV 250 ML IV ONE ×3 (05:12→21:33)
[2016-11-08 05:30] LABS: BASOPHILS % (AUTO) 0.7 % (0.2-1.0); EOSINOPHILS # (AUTO) 0.2 x10^3/uL (0.0-0.2); EOSINOPHILS % (AUTO) 3.7 % (0.9-2.9); HEMATOCRIT 35.6 % (42.0-54.0); HEMOGLOBIN 11.8 g/dL (13.5-18.0); LYMPHOCYTES # (AUTO) 1.9 X10^3/uL (1.3-2.9); LYMPHOCYTES % (AUTO) 27.5 % (21.0-51.0); MEAN CORPUSCULAR HGB CONC 33.1 g/dL (33.0-35.0); MEAN CORPUSCULAR VOLUME 78.7 fL (80.0-100.0); MEAN PLATELET VOLUME 6.9 fL (7.4-11.0); MONOCYTES # (AUTO) 0.7 x10^3/uL (0.3-0.8); MONOCYTES % (AUTO) 10.3 % (0.0-13.0); NEUTROPHILS # (AUTO) 3.9 x10^3/uL (2.2-4.8); NEUTROPHILS % (AUTO) 57.8 % (42.0-75.0); PLATELET COUNT 321 X10^3/uL (150.0-450.0); RED BLOOD COUNT 4.52 X10^6/uL (4.7-6.0); RED CELL DISTRIBUTION WIDTH 14.1 % (11.6-16.5); WHITE BLOOD COUNT 6.8 X10^3/uL (3.6-10.0)
[2016-11-08 05:36] LABS: ALANINE AMINOTRANSFERASE 20 Units/L (12-78); ALBUMIN 2.4 g/dL (3.4-5.0); ALKALINE PHOSPHATASE 61 Units/L (46-116); ASPARTATE AMINO TRANSFERASE 20 Units/L (15-37); BLOOD UREA NITROGEN 21 mg/dL (7-18); CALCIUM 8.5 mg/dL (8.5-10.1); CARBON DIOXIDE 29.8 mmol/L (21-32); CHLORIDE 107 mmol/L (98-107); COR CA(FOR HYPOALB) 9.8 mg/dL (8.5-10.1); COR NA(FOR HYPERGLY) 144 mmol/L (136-145); CREATININE 0.95 mg/dL (0.70-1.30); GLUCOSE 121 mg/dL (65-99); SODIUM 143 mmol/L (136-145); TOTAL PROTEIN 6.5 g/dL (6.4-8.2); eGFR BLACK RACES > 60 (>60); eGFR NON BLACK RACES > 60 (>60)
[2016-11-08] MEDS: MERREM VIAL 1,000 MG in NS 100 ML IV 100 ML IV SCH ×3 (05:36→22:00)
[2016-11-08] MEDS ORDERED: GLUCOPHAGE ONE ×2 (06:04→18:21)
[2016-11-08] MEDS: HUMALOG SC SCH ×3 (06:07→18:30)
[2016-11-08] MEDS: VANCOMYCIN HCL 1 GM VIAL IV SCH ×3 (06:12→22:00)
[2016-11-08] MEDS: GLUCOPHAGE PO SCH ×2 (06:14→18:25)
[2016-11-08 07:11] LABS: ERYTHROCYTE SEDIMENTATION RATE 33 MM/HOUR (0-15)
--- NOTE | 2016-11-08 07:27 | RAD ---
HISTORY: Preop amputation 5th toe Study: Chest one view Comparison: November 05, 2016 Findings: The trachea is midline. The cardiac silhouette is enlarged. No congestive heart failure is noted.. The lungs are clear without focal infiltrate or effusion. The bony thorax is unremarkable. IMPRESSION: 1. Mild cardiomegaly without congestive heart failure 2. Lungs clear Reported By:
[2016-11-08] MEDS: ZINC SULFATE PO SCH (10:03)
[2016-11-08] MEDS: JUVEN PO SCH ×2 (10:03→21:57)
[2016-11-08] MEDS: SYNTHROID 50 mcg TAB PO SCH (10:03)
[2016-11-08] MEDS: VITAMIN C PO SCH ×2 (10:03→21:59)
[2016-11-08] MEDS: FLOMAX PO SCH (10:03)
[2016-11-08] MEDS: ZESTRIL TAB 40 MG PO SCH (10:04)
[2016-11-08] MEDS: LOVENOX INJ 40 MG SYR SC SCH (10:04)
[2016-11-08 12:17] LABS: CREATININE 1.04 mg/dL (0.70-1.30); VANCOMYCIN,TROUGH 12.4 ug/mL (15-20)
[2016-11-08] MEDS ORDERED: PHARMACY COMMENT IV SCH (13:30)
[2016-11-08 14:25] LABS: VANCOMYCIN,TROUGH 10.8 ug/mL (15-20)
--- NOTE | 2016-11-08 15:20 | MRI ---
Indication: Pain and swelling. Exam: MRI left foot. Technique: Routine multiplanar multisequence imaging was performed through the left foot without con trast. Findings: The visualized talus and calcaneus are unremarkable. There is abnormal edema in the 2nd cu neiform bone. No obvious fracture or dislocation can be seen in the area. There is diffuse moderate abnormal signal throughout the proximal , middle, and distal phalanx of the 5th toe with the 5th met atarsal bone appearing intact and normal signal intensity. No fracture is seen in the area. There is diffuse decreased signal in the bone marrow throughout the 5th toe with increased signal on the T2 data set . There is mild soft tissue swelling throughout the digit and there is mild stranding and e phoebe in the subcutaneous soft tissues along the lateral aspect of the ankle extending along the dors um of the foot laterally with no focal fluid collection or mass seen. No erosions are seen. There is a cortical based rounded area of abnormal signal along the proximal 2nd cuneiform bone with a serpi ginous area of decreased signal peripherally and central increased signal with vague edema extending throughout the remaining portion the bone distally. There is a small effusion in the 5th MTP joint. Impression: Findings suspicious for osteomyelitis involving the proximal , middle, and distal phalanx of the 5th toe with moderate cellulitis in the surrounding soft tissues with no abscess seen . Tiny effusion along the 5th MTP joint . Questionable focus of subacute to chronic AVN along the 2nd cuneiform bone with vague edema extendin g throughout the bone marrow . Suggest followup to assure stability. Mild cellulitis or edema in the soft tissues around the ankle extending along the dorsum of the foot . Reported By:
[2016-11-08] MEDS: [UNRECOGNIZED DRUG - OTHER] PO SCH (21:57)
[2016-11-08] MEDS: LEVEMIR SC SCH (21:58)
[2016-11-08] MEDS: SNACK - Diabetic Appropriate PO SCH (22:00)
[2016-11-08] MEDS: HUMULIN R SUBCUT PRN (22:01)
[2016-11-09] MEDS ORDERED: NS 1/2 1000 ML IV 1,000 ML IV ONE ×2 (04:30→18:19)
[2016-11-09] MEDS ORDERED: NS 250 ML IV 250 ML IV ONE ×3 (04:49→22:24)
[2016-11-09] MEDS: MERREM VIAL 1,000 MG in NS 100 ML IV 100 ML IV SCH ×3 (05:07→21:23)
[2016-11-09] MEDS: VANCOMYCIN HCL 1 GM VIAL IV SCH ×3 (05:07→22:37)
[2016-11-09 05:17] LABS: BASOPHILS % (AUTO) 0.7 % (0.2-1.0); EOSINOPHILS # (AUTO) 0.2 x10^3/uL (0.0-0.2); EOSINOPHILS % (AUTO) 3.4 % (0.9-2.9); HEMATOCRIT 36.1 % (42.0-54.0); LYMPHOCYTES # (AUTO) 2.2 X10^3/uL (1.3-2.9); LYMPHOCYTES % (AUTO) 32.5 % (21.0-51.0); MEAN CORPUSCULAR HEMOGLOBIN 26.2 pg (27.0-34.0); MEAN CORPUSCULAR HGB CONC 33.2 g/dL (33.0-35.0); MEAN CORPUSCULAR VOLUME 79.1 fL (80.0-100.0); MEAN PLATELET VOLUME 6.7 fL (7.4-11.0); MONOCYTES # (AUTO) 0.7 x10^3/uL (0.3-0.8); MONOCYTES % (AUTO) 10.3 % (0.0-13.0); NEUTROPHILS # (AUTO) 3.5 x10^3/uL (2.2-4.8); NEUTROPHILS % (AUTO) 53.1 % (42.0-75.0); PLATELET COUNT 342 X10^3/uL (150.0-450.0); RED BLOOD COUNT 4.57 X10^6/uL (4.7-6.0); RED CELL DISTRIBUTION WIDTH 14.3 % (11.6-16.5); WHITE BLOOD COUNT 6.7 X10^3/uL (3.6-10.0)
[2016-11-09 05:28] LABS: ALANINE AMINOTRANSFERASE 22 Units/L (12-78); ALBUMIN 2.5 g/dL (3.4-5.0); ALKALINE PHOSPHATASE 55 Units/L (46-116); ASPARTATE AMINO TRANSFERASE 25 Units/L (15-37); BLOOD UREA NITROGEN 19 mg/dL (7-18); CALCIUM 8.6 mg/dL (8.5-10.1); CARBON DIOXIDE 29.3 mmol/L (21-32); CHLORIDE 107 mmol/L (98-107); COR CA(FOR HYPOALB) 9.8 mg/dL (8.5-10.1); COR NA(FOR HYPERGLY) 142 mmol/L (136-145); CREATININE 0.92 mg/dL (0.70-1.30); GLUCOSE 119 mg/dL (65-99); SODIUM 142 mmol/L (136-145); TOTAL PROTEIN 6.4 g/dL (6.4-8.2); eGFR BLACK RACES > 60 (>60); eGFR NON BLACK RACES > 60 (>60)
[2016-11-09] MEDS: NS 1/2 1000 ML IV 1,000 ML IV SCH ×3 (05:54→19:24)
[2016-11-09 06:04] LABS: ERYTHROCYTE SEDIMENTATION RATE 26 MM/HOUR (0-15)
[2016-11-09] MEDS ORDERED: GLUCOPHAGE ONE ×2 (08:36→18:19)
[2016-11-09] MEDS: HUMALOG SC SCH ×3 (09:01→17:46)
[2016-11-09] MEDS: JUVEN PO SCH ×2 (09:02→21:21)
[2016-11-09] MEDS: LOVENOX INJ 40 MG SYR SC SCH (09:02)
[2016-11-09] MEDS: SYNTHROID 50 mcg TAB PO SCH (09:03)
[2016-11-09] MEDS: FLOMAX PO SCH (09:03)
[2016-11-09] MEDS: GLUCOPHAGE PO SCH ×2 (09:03→18:31)
[2016-11-09] MEDS: VITAMIN C PO SCH ×2 (09:03→21:23)
[2016-11-09] MEDS: ZINC SULFATE PO SCH (09:03)
[2016-11-09] MEDS: ZESTRIL TAB 40 MG PO SCH (09:03)
--- NOTE | 2016-11-09 12:40 | PCM.PROG ---
Progress Note - Progress Note for Day of Date: 11/08/16 - Subjective Subjective: PATIENT RESTS IN BED. CELLULITIS CONTINUES TO LEFT LOWER EXTREMITY WITH FOOT ULCER NOTED TO 5TH TOE, LEFT FOOT. WOUND CONTINUES WITH MODERATE PURULENT DRAINAGE. DR. SMYTH CONSULTED YESTERDAY AND PLANS TO AMPUTATE 5TH TOE, LEFT FOOT. WE DISCUSS THIS WITH PATIENT AND PATIENT IS APPREHENSIVE WITH PLANS. PATIENT CONTINUES WITH INJECTION SITE REACTION TO ABDOMEN. WE DISCUSS ROTATING SITES FOR INSULIN, PATIENT VOICES UNDERSTANDING. PETECHIAE CONTINUES TO BE THE SIZE OF A SMALL DINNER PLATE. CBC WNL EXCEPT: H/H 11.8/35.6. CMP WNL EXCEPT: ALBUMIN 2.4. CRP 24.00. ESR 33. WE WILL OBTAIN MRI OF LEFT FOOT, CONTINUE VANCOMYCIN IV, MERREM, WOUND CARE, AND MONITOR. WE WILL FOLLOW UP IN AM WITH ADDITIONAL LABS. - Past Medical Family Social History Past Med/Fam/Surg Hx: No changes since H&P Allergies: Allergies No Known Drug Allergy Allergy (Verified 11/15/12 15:43) - Review of Systems ROS: No change since H&P - Vital Signs and I&O's Vital Signs: Temperature 98.6 F Pulse Rate [Right Brachial] 73 Pulse Rate [Radial] 82 Respiratory Rate 20 Blood Pressure [Right Arm] 144/76 Blood Pressure [Left Arm] 92/50 O2 Sat by Pulse Oximetry 97 Intake and Output: Intake & Output 11/07/16 11/08/16 11/09/16 11/10/16 11:59 11:59 11:59 11:59 Intake Total 3420 3182 1080 Balance 3420 3182 1080 - Physical Exam Oriented: Normal, Time, Person, Place Eyes: Normal. negative: Blurred Vision, Diplopia, Discharge, Pain, Redness, Photophobia Ear: Normal. negative: Swelling, Ecchymosis, Hemotypanum, Abrasion, Laceration Nose: Normal. negative: Injected, Discharge, Blood Throat: Normal. negative: Tonsillar Hypertrophy, Red, Exudate Respiratory: Normal Cardiovascular: Normal : Normal. negative: Dysuria, Hematuria, Frequency Auscultation: Bowel Sounds: Normal. negative: Bruit Palpation: Normal. negative: Spleen Enlarged, Liver Enlarged, Mass Pulsatile Tenderness: Other (Petechiae Left Abdomen). negative: Rebound, Guarding, Rigidity Skin: Wound (Cellulitis LLE; Diabetic Foot ulcer to Left 5th toe) Musculoskeletal: Left, Foot, Swelling Psychiatric: Normal Mood Description: Calm, Appropriate Affect: Normal Speech Pattern: Clear, Appropriate - Laboratory and Diagnostics Result Diagrams: 11/09/16 04:20 11/09/16 04:20 Labs: 11/06/16 04:46 Toe - Left Little Gram Stain - Final 11/06/16 04:46 Toe - Left Little Wound Culture - Final Staphylococcus Aureus Laboratory WBC 6.7 X10^3/uL (3.6-10.0) 11/09/16 04:20 RBC 4.57 X10^6/uL (4.7-6.0) L 11/09/16 04:20 Hgb 12.0 g/dL (13.5-18.0) L 11/09/16 04:20 Hct 36.1 % (42.0-54.0) L 11/09/16 04:20 MCV 79.1 fL (80.0-100.0) L 11/09/16 04:20 MCH 26.2 pg (27.0-34.0) L 11/09/16 04:20 MCHC 33.2 g/dL (33.0-35.0) 11/09/16 04:20 RDW 14.3 % (11.6-16.5) 11/09/16 04:20 Plt Count 342 X10^3/uL (150.0-450.0) 11/09/16 04:20 MPV 6.7 fL (7.4-11.0) L 11/09/16 04:20 Neut % 53.1 % (42.0-75.0) 11/09/16 04:20 Lymph % 32.5 % (21.0-51.0) 11/09/16 04:20 [place] % 10.3 % (0.0-13.0) 11/09/16 04:20 Eos % 3.4 % (0.9-2.9) H 11/09/16 04:20 Baso % 0.7 % (0.2-1.0) 11/09/16 04:20 Neut # 3.5 x10^3/uL (2.2-4.8) 11/09/16 04:20 Lymph # 2.2 X10^3/uL (1.3-2.9) 11/09/16 04:20 [place] # 0.7 x10^3/uL (0.3-0.8) 11/09/16 04:20 Eos # 0.2 x10^3/uL (0.0-0.2) 11/09/16 04:20 Baso # 0.0 X10^3/uL (0.0-0.1) 11/09/16 04:20 Absolute Nucleated RBC 0.0 /100WBC 11/09/16 04:20 ESR 26 MM/HOUR (0-15) H 11/09/16 04:20 INR Target Range - 11/05/16 23:10 INR 1.12 (0.8-1.3) 11/05/16 23:10 PTT 30.7 SECONDS (22.9-36.5) 11/05/16 23:10 PTT Comment - 11/05/16 23:10 Bleeding Time > 15.0 MINUTES (2.0-8.0) 11/07/16 15:00 D-Dimer 734 ng/mL (0-400) H* 11/05/16 23:10 Sodium 142 mmol/L (136-145) 11/09/16 04:20 Corrected Sodium 142 mmol/L (136-145) 11/09/16 04:20 Potassium 4.1 mmol/L (3.5-5.1) 11/09/16 04:20 Chloride 107 mmol/L (98-107) 11/09/16 04:20 Carbon Dioxide 29.3 mmol/L (21-32) 11/09/16 04:20 BUN 19 mg/dL (7-18) H 11/09/16 04:20 Creatinine 0.92 mg/dL (0.70-1.30) 11/09/16 04:20 Est GFR (MDRD) Af Amer > 60 (>60) 11/09/16 04:20 Est GFR (MDRD) Non-Af > 60 (>60) 11/09/16 04:20 Glucose 119 mg/dL (65-99) H 11/09/16 04:20 Lactic Acid 1.2 mmol/L (0.4-2.0) 11/05/16 23:10 Calcium 8.6 mg/dL (8.5-10.1) 11/09/16 04:20 Corrected Calcium 9.8 mg/dL (8.5-10.1) 11/09/16 04:20 Total Bilirubin 0.40 mg/dL (0.2-1.0) 11/09/16 04:20 Direct Bilirubin 0.08 mg/dL (0-0.2) 11/07/16 04:15 Indirect Bilirubin 0.22 mg/dL (0.2-0.8) 11/07/16 04:15 AST 25 Units/L (15-37) 11/09/16 04:20 ALT 22 Units/L (12-78) 11/09/16 04:20 Alkaline Phosphatase 55 Units/L (46-116) 11/09/16 04:20 C-Reactive Protein 14.00 mg/L (0-3.0) H 11/09/16 04:20 Total Protein 6.4 g/dL (6.4-8.2) 11/09/16 04:20 Albumin 2.5 g/dL (3.4-5.0) L 11/09/16 04:20 Globulin 3.9 g/dL (2.5-4.5) 11/09/16 04:20 Albumin/Globulin Ratio 0.6 Ratio (1.1-2.1) L 11/09/16 04:20 Amylase 28 Units/L (25-115) 11/05/16 23:10 Lipase 105 Units/L (73-393) 11/05/16 23:10 Specimen Type Clean catch urine 11/05/16 00:01 Urine Color Dark yellow (YELLOW) 11/05/16 00:01 Urine Appearance Clear (CLEAR) 11/05/16 00:01 Urine pH 5.0 (5.0 - 8.0) 11/05/16 00:01 Ur Specific [place] 1.025 (1.000-1.030) 11/05/16 00:01 Urine Protein 2+ (NEGATIVE) 11/05/16 00:01 Urine Glucose (UA) 3+ (NEGATIVE) 11/05/16 00:01 Urine Ketones Negative (NEGATIVE) 11/05/16 00:01 Urine Occult Blood 2+ (NEGATIVE) 11/05/16 00:01 Urine Nitrite Negative (NEGATIVE) 11/05/16 00:01 Urine Bilirubin Negative (NEGATIVE) 11/05/16 00:01 Urine Urobilinogen Normal (NORMAL) 11/05/16 00:01 Ur Leukocyte Esterase 1+ (NEGATIVE) 11/05/16 00:01 Urine RBC 0-3 /HPF (NEGATIVE) 11/05/16 00:01 Urine WBC 0-1 /HPF (NEGATIVE) 11/05/16 00:01 Ur Squamous Epith Cells Rare /HPF (NEGATIVE) 11/05/16 00:01 Urine Bacteria Negative /HPF (NEGATIVE) 11/05/16 00:01 Hyaline Casts Few /LPF (NEGATIVE) 11/05/16 00:01 Urine Mucus Few /HPF (NEGATIVE) 11/05/16 00:01 Ur Culture Indicated? No/not indicated 11/05/16 00:01 Vancomycin Trough 10.8 ug/mL (15-20) L 11/08/16 14:06 - Plan (1) Cellulitis of left foot Status: Acute Plan: MRI OF LEFT FOOT TODAY, CONTINUE VANCOMYCIN, MERREM, MONITOR. (2) Cellulitis of abdominal wall Status: Acute Plan: CONTINUE IV ANTIBIOTICS, MONITOR. (3) Diabetic ulcer of left foot Status: Chronic Qualifiers: Diabetes mellitus type: type 2 Qualified Code(s): E11.621 - Type 2 diabetes mellitus with foot ulcer Plan: CONTINUE WOUND CARE, MONITOR. (4) Diabetes mellitus, type 2 Status: Chronic Qualifiers: Diabetes mellitus complication status: with skin complications Diabetes mellitus complication detail: with foot ulcer Diabetic retinopathy severity: D Proliferative retinopathy type: P Diabetes mellitus macular edema: D Diabetes mellitus terminal system operator insulin use: with terminal system operator use Laterality: L Chronic kidney disease stage: C Qualified Code(s): E11.621 - Type 2 diabetes mellitus with foot ulcer Plan: CONTINUE OTBS, INSULIN R SLIDING SCALE, GLUCOPHAGE, HUMALOG, LEVEMIR, MONITOR. (5) Hypertension Status: Chronic Qualifiers: Hypertension type: essential hypertension Qualified Code(s): I10 - Essential (primary) hypertension (6) GERD (gastroesophageal reflux disease) Status: Chronic Qualifiers: Esophagitis presence: esophagitis presence not specified Qualified Code(s) : K21.9 - Gastro-esophageal reflux disease without esophagitis (7) History of pulmonary embolism Status: Chronic (8) Hyperlipidemia Status: Chronic Qualifiers: Hyperlipidemia type: mixed hyperlipidemia Qualified Code(s): E78.2 - Mixed hyperlipidemia (9) Arthritis Status: Chronic (10) Microcytic anemia Status: Chronic
--- NOTE | 2016-11-09 12:48 | PCM.PROG ---
Progress Note - Progress Note for Day of Date: 11/09/16 - Subjective Subjective: PATIENT RESTS IN BED. LEFT FOOT IS WRAPPED WITH DRESSING. DRESSING IS DRY AND INTACT. MRI OF LEFT LOWER EXTREMITY REPORTS FINDINGS SUSPICIOUS FOR OSTEOMYELITIS INVOLVING THE PROXIMAL, MIDDLE, AND DISTAL PHALANX OF THE 5TH TOE WITH MODERATE CELLULITIS IN THE SURROUNDING SOFT TISSUES WITH NO ABSCESS SEEN. CELLULITIS CONTINUES TO LEFT LOWER EXTREMITY AND PATIENT CONTINUES ON VANCOMYCIN AND MERREM. FINAL WOUND CULTURE IS REPORTING STAPHYLOCCOCUS AUREUS AND ORGANISM IS SENSITIVE TO LEVAQUIN. WE DISCUSS CONTINUED TREATMENT. PATIENT CONTINUES WITH INJECTION SITE REACTION TO ABDOMEN. PETECHIAE CONTINUES TO BE THE SIZE OF A SMALL DINNER PLATE. CBC WNL EXCEPT: H/H 12.0/36.1. CMP WNL EXCEPT: BUN 19, GLUCOSE 119, ALBUMIN 2.5. CRP 14.00. ESR 26. WE WILL CONTINUE VANCOMYCIN IV, MERREM, WOUND CARE, AND MONITOR. WE WILL FOLLOW UP IN AM WITH ADDITIONAL LABS. - Past Medical Family Social History Past Med/Fam/Surg Hx: No changes since H&P Allergies: Allergies No Known Drug Allergy Allergy (Verified 11/15/12 15:43) - Review of Systems ROS: No change since H&P - Vital Signs and I&O's Vital Signs: Temperature 97.5 F Pulse Rate [] 73 Pulse Rate [Right Brachial] 73 Pulse Rate [Radial] 82 Respiratory Rate 18 Blood Pressure [Right Arm] 144/76 Blood Pressure [Left Arm] 144/76 O2 Sat by Pulse Oximetry 96 Intake and Output: Intake & Output 11/07/16 11/08/16 11/09/16 11/10/16 11:59 11:59 11:59 11:59 Intake Total 3420 3182 1080 Balance 3420 3182 1080 - Physical Exam Oriented: Normal, Time, Person, Place Eyes: Normal. negative: Blurred Vision, Diplopia, Discharge, Pain, Redness, Photophobia Ear: Normal. negative: Swelling, Ecchymosis, Hemotypanum, Abrasion, Laceration Nose: Normal. negative: Injected, Discharge, Blood Throat: Normal. negative: Tonsillar Hypertrophy, Red, Exudate Respiratory: Normal Cardiovascular: Normal : Normal. negative: Dysuria, Hematuria, Frequency Auscultation: Bowel Sounds: Normal. negative: Bruit Palpation: Normal. negative: Spleen Enlarged, Liver Enlarged, Mass Pulsatile Tenderness: Other (Petechiae Left Abdomen). negative: Rebound, Guarding, Rigidity Skin: Wound (Cellulitis LLE; Diabetic Foot ulcer to Left 5th toe) Musculoskeletal: Left, Foot, Swelling Psychiatric: Normal Mood Description: Calm, Appropriate Affect: Normal Speech Pattern: Clear, Appropriate - Laboratory and Diagnostics Result Diagrams: 11/09/16 04:20 11/09/16 04:20 Labs: 11/06/16 04:46 Toe - Left Little Gram Stain - Final 11/06/16 04:46 Toe - Left Little Wound Culture - Final Staphylococcus Aureus Laboratory WBC 6.7 X10^3/uL (3.6-10.0) 11/09/16 04:20 RBC 4.57 X10^6/uL (4.7-6.0) L 11/09/16 04:20 Hgb 12.0 g/dL (13.5-18.0) L 11/09/16 04:20 Hct 36.1 % (42.0-54.0) L 11/09/16 04:20 MCV 79.1 fL (80.0-100.0) L 11/09/16 04:20 MCH 26.2 pg (27.0-34.0) L 11/09/16 04:20 MCHC 33.2 g/dL (33.0-35.0) 11/09/16 04:20 RDW 14.3 % (11.6-16.5) 11/09/16 04:20 Plt Count 342 X10^3/uL (150.0-450.0) 11/09/16 04:20 MPV 6.7 fL (7.4-11.0) L 11/09/16 04:20 Neut % 53.1 % (42.0-75.0) 11/09/16 04:20 Lymph % 32.5 % (21.0-51.0) 11/09/16 04:20 [place] % 10.3 % (0.0-13.0) 11/09/16 04:20 Eos % 3.4 % (0.9-2.9) H 11/09/16 04:20 Baso % 0.7 % (0.2-1.0) 11/09/16 04:20 Neut # 3.5 x10^3/uL (2.2-4.8) 11/09/16 04:20 Lymph # 2.2 X10^3/uL (1.3-2.9) 11/09/16 04:20 [place] # 0.7 x10^3/uL (0.3-0.8) 11/09/16 04:20 Eos # 0.2 x10^3/uL (0.0-0.2) 11/09/16 04:20 Baso # 0.0 X10^3/uL (0.0-0.1) 11/09/16 04:20 Absolute Nucleated RBC 0.0 /100WBC 11/09/16 04:20 ESR 26 MM/HOUR (0-15) H 11/09/16 04:20 INR Target Range - 11/05/16 23:10 INR 1.12 (0.8-1.3) 11/05/16 23:10 PTT 30.7 SECONDS (22.9-36.5) 11/05/16 23:10 PTT Comment - 11/05/16 23:10 Bleeding Time > 15.0 MINUTES (2.0-8.0) 11/07/16 15:00 D-Dimer 734 ng/mL (0-400) H* 11/05/16 23:10 Sodium 142 mmol/L (136-145) 11/09/16 04:20 Corrected Sodium 142 mmol/L (136-145) 11/09/16 04:20 Potassium 4.1 mmol/L (3.5-5.1) 11/09/16 04:20 Chloride 107 mmol/L (98-107) 11/09/16 04:20 Carbon Dioxide 29.3 mmol/L (21-32) 11/09/16 04:20 BUN 19 mg/dL (7-18) H 11/09/16 04:20 Creatinine 0.92 mg/dL (0.70-1.30) 11/09/16 04:20 Est GFR (MDRD) Af Amer > 60 (>60) 11/09/16 04:20 Est GFR (MDRD) Non-Af > 60 (>60) 11/09/16 04:20 Glucose 119 mg/dL (65-99) H 11/09/16 04:20 Lactic Acid 1.2 mmol/L (0.4-2.0) 11/05/16 23:10 Calcium 8.6 mg/dL (8.5-10.1) 11/09/16 04:20 Corrected Calcium 9.8 mg/dL (8.5-10.1) 11/09/16 04:20 Total Bilirubin 0.40 mg/dL (0.2-1.0) 11/09/16 04:20 Direct Bilirubin 0.08 mg/dL (0-0.2) 11/07/16 04:15 Indirect Bilirubin 0.22 mg/dL (0.2-0.8) 11/07/16 04:15 AST 25 Units/L (15-37) 11/09/16 04:20 ALT 22 Units/L (12-78) 11/09/16 04:20 Alkaline Phosphatase 55 Units/L (46-116) 11/09/16 04:20 C-Reactive Protein 14.00 mg/L (0-3.0) H 11/09/16 04:20 Total Protein 6.4 g/dL (6.4-8.2) 11/09/16 04:20 Albumin 2.5 g/dL (3.4-5.0) L 11/09/16 04:20 Globulin 3.9 g/dL (2.5-4.5) 11/09/16 04:20 Albumin/Globulin Ratio 0.6 Ratio (1.1-2.1) L 11/09/16 04:20 Amylase 28 Units/L (25-115) 11/05/16 23:10 Lipase 105 Units/L (73-393) 11/05/16 23:10 Specimen Type Clean catch urine 11/05/16 00:01 Urine Color Dark yellow (YELLOW) 11/05/16 00:01 Urine Appearance Clear (CLEAR) 11/05/16 00:01 Urine pH 5.0 (5.0 - 8.0) 11/05/16 00:01 Ur Specific [place] 1.025 (1.000-1.030) 11/05/16 00:01 Urine Protein 2+ (NEGATIVE) 11/05/16 00:01 Urine Glucose (UA) 3+ (NEGATIVE) 11/05/16 00:01 Urine Ketones Negative (NEGATIVE) 11/05/16 00:01 Urine Occult Blood 2+ (NEGATIVE) 11/05/16 00:01 Urine Nitrite Negative (NEGATIVE) 11/05/16 00:01 Urine Bilirubin Negative (NEGATIVE) 11/05/16 00:01 Urine Urobilinogen Normal (NORMAL) 11/05/16 00:01 Ur Leukocyte Esterase 1+ (NEGATIVE) 11/05/16 00:01 Urine RBC 0-3 /HPF (NEGATIVE) 11/05/16 00:01 Urine WBC 0-1 /HPF (NEGATIVE) 11/05/16 00:01 Ur Squamous Epith Cells Rare /HPF (NEGATIVE) 11/05/16 00:01 Urine Bacteria Negative /HPF (NEGATIVE) 11/05/16 00:01 Hyaline Casts Few /LPF (NEGATIVE) 11/05/16 00:01 Urine Mucus Few /HPF (NEGATIVE) 11/05/16 00:01 Ur Culture Indicated? No/not indicated 11/05/16 00:01 Vancomycin Trough 10.8 ug/mL (15-20) L 11/08/16 14:06 - Plan (1) Cellulitis of left foot Status: Acute Plan: CONTINUE VANCOMYCIN, MERREM, WOUND CARE, MONITOR. (2) Diabetic ulcer of left foot Status: Chronic Qualifiers: Diabetes mellitus type: type 2 Qualified Code(s): E11.621 - Type 2 diabetes mellitus with foot ulcer Plan: CONTINUE WOUND CARE, MONITOR. (3) Injection site reaction Status: Acute Qualifiers: Encounter type: initial encounter Qualified Code(s): T80.90XA - Unspecified complication following infusion and therapeutic injection, initial encounter Plan: CONTINUE TO MONITOR, AVOID INSULIN INJECTION AT SITE. (4) Diabetes mellitus, type 2 Status: Chronic Qualifiers: Diabetes mellitus complication status: with skin complications Diabetes mellitus complication detail: with foot ulcer Diabetic retinopathy severity: D Proliferative retinopathy type: P Diabetes mellitus macular edema: D Diabetes mellitus termite control service representative insulin use: with termite control service representative use Laterality: L Chronic kidney disease stage: C Qualified Code(s): E11.621 - Type 2 diabetes mellitus with foot ulcer Plan: CONTINUE OTBS, INSULIN R SLIDING SCALE, GLUCOPHAGE, HUMALOG, LEVEMIR, MONITOR. (5) Hypertension Status: Chronic Qualifiers: Hypertension type: essential hypertension Qualified Code(s): I10 - Essential (primary) hypertension (6) GERD (gastroesophageal reflux disease) Status: Chronic Qualifiers: Esophagitis presence: esophagitis presence not specified Qualified Code(s) : K21.9 - Gastro-esophageal reflux disease without esophagitis (7) History of pulmonary embolism Status: Chronic (8) Hyperlipidemia Status: Chronic Qualifiers: Hyperlipidemia type: mixed hyperlipidemia Qualified Code(s): E78.2 - Mixed hyperlipidemia (9) Arthritis Status: Chronic (10) Microcytic anemia Status: Chronic
[2016-11-09] MEDS: SNACK - Diabetic Appropriate PO SCH (21:22)
[2016-11-09] MEDS: CRESTOR TAB 10 MG PO SCH (21:23)
[2016-11-09] MEDS: LEVEMIR SC SCH (21:24)
[2016-11-09 22:01] LABS: CREATININE 0.97 mg/dL (0.70-1.30); VANCOMYCIN,TROUGH 14.9 ug/mL (15-20)
[2016-11-10] MEDS: NS 1/2 1000 ML IV 1,000 ML IV SCH ×5 (01:28→19:12)
[2016-11-10] MEDS: MERREM VIAL 1,000 MG in NS 100 ML IV 100 ML IV SCH ×3 (05:04→21:25)
[2016-11-10] MEDS ORDERED: GLUCOPHAGE ONE ×2 (05:13→18:15)
[2016-11-10] MEDS ORDERED: NS 250 ML IV 250 ML IV ONE ×3 (05:14→23:11)
[2016-11-10 05:38] LABS: BASOPHILS # (AUTO) 0.1 X10^3/uL (0.0-0.1); BASOPHILS % (AUTO) 0.8 % (0.2-1.0); EOSINOPHILS # (AUTO) 0.2 x10^3/uL (0.0-0.2); EOSINOPHILS % (AUTO) 3.7 % (0.9-2.9); HEMOGLOBIN 11.8 g/dL (13.5-18.0); LYMPHOCYTES # (AUTO) 2.6 X10^3/uL (1.3-2.9); LYMPHOCYTES % (AUTO) 40.1 % (21.0-51.0); MEAN CORPUSCULAR HEMOGLOBIN 26.1 pg (27.0-34.0); MEAN CORPUSCULAR HGB CONC 32.9 g/dL (33.0-35.0); MEAN CORPUSCULAR VOLUME 79.5 fL (80.0-100.0); MEAN PLATELET VOLUME 6.6 fL (7.4-11.0); MONOCYTES # (AUTO) 0.6 x10^3/uL (0.3-0.8); MONOCYTES % (AUTO) 8.9 % (0.0-13.0); NEUTROPHILS % (AUTO) 46.5 % (42.0-75.0); PLATELET COUNT 363 X10^3/uL (150.0-450.0); RED BLOOD COUNT 4.53 X10^6/uL (4.7-6.0); RED CELL DISTRIBUTION WIDTH 14.1 % (11.6-16.5); WHITE BLOOD COUNT 6.4 X10^3/uL (3.6-10.0)
[2016-11-10 05:42] LABS: HEMOGLOBIN A1C 8.7 % (4.5-6.2)
[2016-11-10 05:50] LABS: ALANINE AMINOTRANSFERASE 27 Units/L (12-78); ALBUMIN 2.5 g/dL (3.4-5.0); ALKALINE PHOSPHATASE 60 Units/L (46-116); ASPARTATE AMINO TRANSFERASE 27 Units/L (15-37); BLOOD UREA NITROGEN 21 mg/dL (7-18); CALCIUM 8.6 mg/dL (8.5-10.1); CARBON DIOXIDE 30.2 mmol/L (21-32); CHLORIDE 107 mmol/L (98-107); COR CA(FOR HYPOALB) 9.8 mg/dL (8.5-10.1); COR NA(FOR HYPERGLY) 144 mmol/L (136-145); CREATININE 0.98 mg/dL (0.70-1.30); GLUCOSE 124 mg/dL (65-99); SODIUM 143 mmol/L (136-145); TOTAL PROTEIN 6.4 g/dL (6.4-8.2); eGFR BLACK RACES > 60 (>60); eGFR NON BLACK RACES > 60 (>60)
[2016-11-10] MEDS: VANCOMYCIN HCL 1 GM VIAL IV SCH ×3 (06:07→23:30)
[2016-11-10] MEDS: GLUCOPHAGE PO SCH ×2 (06:07→18:27)
[2016-11-10 06:20] LABS: ERYTHROCYTE SEDIMENTATION RATE 26 MM/HOUR (0-15)
[2016-11-10] MEDS: HUMALOG SC SCH ×3 (09:49→18:40)
[2016-11-10] MEDS: LOVENOX INJ 40 MG SYR SC SCH (09:50)
[2016-11-10] MEDS: ZINC SULFATE PO SCH (09:51)
[2016-11-10] MEDS: FLOMAX PO SCH (09:51)
[2016-11-10] MEDS: JUVEN PO SCH ×2 (09:51→21:25)
[2016-11-10] MEDS: ZESTRIL TAB 40 MG PO SCH (09:51)
[2016-11-10] MEDS: SYNTHROID 50 mcg TAB PO SCH (09:51)
[2016-11-10] MEDS: VITAMIN C PO SCH ×2 (09:51→21:01)
[2016-11-10] MEDS ORDERED: NS 1/2 1000 ML IV 1,000 ML IV ONE (17:18)
[2016-11-10] MEDS: CRESTOR TAB 10 MG PO SCH (21:01)
[2016-11-10 21:23] LABS: CREATININE 0.97 mg/dL (0.70-1.30)
[2016-11-10] MEDS: LEVEMIR SC SCH (21:24)
[2016-11-10] MEDS: SNACK - Diabetic Appropriate PO SCH (21:25)
[2016-11-10 22:40] LABS: VANCOMYCIN,TROUGH 16.1 ug/mL (15-20)
[2016-11-11] MEDS ORDERED: NS 1/2 1000 ML IV 1,000 ML IV ONE ×2 (02:53→21:24)
[2016-11-11] MEDS: NS 1/2 1000 ML IV 1,000 ML IV SCH ×3 (03:08→21:57)
[2016-11-11] MEDS ORDERED: NS 250 ML IV 250 ML IV ONE ×3 (05:50→23:13)
[2016-11-11] MEDS: MERREM VIAL 1,000 MG in NS 100 ML IV 100 ML IV SCH ×3 (06:12→21:59)
[2016-11-11] MEDS: VANCOMYCIN HCL 1 GM VIAL IV SCH ×3 (06:12→23:11)
[2016-11-11 06:19] LABS: BASOPHILS % (AUTO) 0.6 % (0.2-1.0); EOSINOPHILS # (AUTO) 0.2 x10^3/uL (0.0-0.2); HEMATOCRIT 35.1 % (42.0-54.0); HEMOGLOBIN 11.7 g/dL (13.5-18.0); LYMPHOCYTES # (AUTO) 2.2 X10^3/uL (1.3-2.9); LYMPHOCYTES % (AUTO) 35.9 % (21.0-51.0); MEAN CORPUSCULAR HEMOGLOBIN 26.3 pg (27.0-34.0); MEAN CORPUSCULAR HGB CONC 33.4 g/dL (33.0-35.0); MEAN CORPUSCULAR VOLUME 78.7 fL (80.0-100.0); MEAN PLATELET VOLUME 6.6 fL (7.4-11.0); MONOCYTES # (AUTO) 0.6 x10^3/uL (0.3-0.8); MONOCYTES % (AUTO) 9.4 % (0.0-13.0); NEUTROPHILS # (AUTO) 3.2 x10^3/uL (2.2-4.8); NEUTROPHILS % (AUTO) 51.1 % (42.0-75.0); PLATELET COUNT 351 X10^3/uL (150.0-450.0); RED BLOOD COUNT 4.47 X10^6/uL (4.7-6.0); RED CELL DISTRIBUTION WIDTH 13.7 % (11.6-16.5); WHITE BLOOD COUNT 6.2 X10^3/uL (3.6-10.0)
[2016-11-11] MEDS: HUMALOG SC SCH ×3 (06:24→18:04)
[2016-11-11] MEDS: GLUCOPHAGE PO SCH ×2 (06:24→18:04)
[2016-11-11 06:39] LABS: ALANINE AMINOTRANSFERASE 29 Units/L (12-78); ALBUMIN 2.5 g/dL (3.4-5.0); ALKALINE PHOSPHATASE 61 Units/L (46-116); ASPARTATE AMINO TRANSFERASE 30 Units/L (15-37); BLOOD UREA NITROGEN 21 mg/dL (7-18); CALCIUM 8.6 mg/dL (8.5-10.1); CARBON DIOXIDE 30.3 mmol/L (21-32); CHLORIDE 106 mmol/L (98-107); COR CA(FOR HYPOALB) 9.8 mg/dL (8.5-10.1); COR NA(FOR HYPERGLY) 143 mmol/L (136-145); CREATININE 0.96 mg/dL (0.70-1.30); GLUCOSE 168 mg/dL (65-99); SODIUM 141 mmol/L (136-145); TOTAL PROTEIN 6.4 g/dL (6.4-8.2); eGFR BLACK RACES > 60 (>60); eGFR NON BLACK RACES > 60 (>60)
[2016-11-11 07:59] LABS: ERYTHROCYTE SEDIMENTATION RATE 25 MM/HOUR (0-15)
[2016-11-11] MEDS: ZESTRIL TAB 40 MG PO SCH (09:22)
[2016-11-11] MEDS ORDERED: XYLOCAINE 1 % (PLAIN) ONE (10:09)
--- NOTE | 2016-11-11 11:01 | RAD ---
HISTORY: PICC line placement Study: Single view of the chest Comparison: November 08, 2016 Findings: The trachea is midline. The cardiac silhouette is of normal. Subsegmental atelectasis and or scarr ing are seen within the left lower lobe. A left-sided PICC line is noted with the tip projecting n ear the cavoatrial junction. IMPRESSION: 1. No acute cardiopulmonary disease. 2. PICC line placement as noted above. Reported By:
--- NOTE | 2016-11-11 11:22 | DR.CONSULT ---
Consult - Consultation for Day of: Date: 11/11/16 - Chief Complaint Chief Complaint: intermediate frame tender antibiotic use - Allergies Allergies/Adverse Reactions: Allergies Allergy/AdvReac Type Severity Reaction Status Date / Time No Known Drug Allergy Allergy Verified 11/15/12 15:43 - History of Present Illness History of Present Illness: possible osteomylitis left foot. diabetes - Past Medical History Past Medical History: Diabetes, Hypertension Additional Medical History: diabetic neuropathy. has very less sensation in the left foot. - Past Surgical History Surgical History: Ortho Surgery - Family History Family Medical History: [place], Hypertension - Social History Does patient currently use any type of tobacco product: No Have you used tobacco products in the last 12 months: No Type of Tobacco Use: None Does any household member use tobacco: No Alcohol Use: None Drug Use: None - Medications Home Medications: Amoxicillin & Pot Clavulanate [Amoxicillin/Clavulanate P 875-125 mg] 1 tab PO BID 11/05/16 [History Confirmed 11/06/16] Insulin Lispro (Humalog) [HumaLOG INSULIN 10 ML VIAL *] 12 units SC TIDWM [History Confirmed 11/06/16] Levothyroxine Sodium [SYNTHROID 50 mcg *] 1 tab PO DAILY 11/05/16 [History Confirmed 11/06/16] Metformin HCl [GLUCOPHAGE 500 MG *] 1 tab PO BID 11/05/16 [History Confirmed 08/13] Metronidazole [Metronidazole] 1 tab PO BID 11/05/16 [History Confirmed 11/06/16] Mupirocin [Mupirocin] 1 applic TOP TID 11/05/16 [History Confirmed 11/06/16] Tamsulosin HCl [FLOMAX (GENERIC) 0.4 MG *] 1 cap PO DAILY 11/05/16 [History Confirmed 11/06/16] - Review of Systems Respiratory: No Symptoms Reported Cardiovascular: No Symptoms Reported Skin: No Symptoms Reported - Physical Exam Vital Signs: Temperature 98.4 F Pulse Rate [Left Brachial] 68 Pulse Rate [Right Brachial] 70 Pulse Rate [Radial] 82 Respiratory Rate 20 Blood Pressure [Right Arm] 147/80 Blood Pressure [Left Arm] 161/73 O2 Sat by Pulse Oximetry 94 Oriented: Normal Eyes: Normal Respiratory: Clear Throughout Skin: Wound (left foot wound) - Plan Plan: peripheral insertion of central catheter
[2016-11-11] MEDS: ZINC SULFATE PO SCH (12:37)
[2016-11-11] MEDS: FLOMAX PO SCH (12:38)
[2016-11-11] MEDS: SYNTHROID 50 mcg TAB PO SCH (12:38)
[2016-11-11] MEDS: LOVENOX INJ 40 MG SYR SC SCH (12:38)
[2016-11-11] MEDS: VITAMIN C PO SCH ×2 (12:38→21:59)
[2016-11-11] MEDS: JUVEN PO SCH ×2 (12:39→21:59)
[2016-11-11] MEDS ORDERED: GLUCOPHAGE ONE (17:59)
[2016-11-11] MEDS ORDERED: MILK OF MAGNESIA PO PRN (19:42)
[2016-11-11] MEDS ORDERED: COLACE CAP 100 MG PO PRN (19:42)
[2016-11-11] MEDS: CRESTOR TAB 10 MG PO SCH (21:59)
[2016-11-11] MEDS: LEVEMIR SC SCH (22:00)
[2016-11-11] MEDS: SNACK - Diabetic Appropriate PO SCH (22:00)
[2016-11-11 22:10] LABS: CREATININE 0.99 mg/dL (0.70-1.30); VANCOMYCIN,TROUGH 16.4 ug/mL (15-20)
[2016-11-12] MEDS ORDERED: NS 250 ML IV 250 ML IV ONE (05:15)
[2016-11-12] MEDS: VANCOMYCIN HCL 1 GM VIAL IV SCH (05:30)
[2016-11-12] MEDS: MERREM VIAL 1,000 MG in NS 100 ML IV 100 ML IV SCH (05:30)
[2016-11-12] MEDS: NS 1/2 1000 ML IV 1,000 ML IV SCH (05:30)
[2016-11-12 06:18] LABS: BASOPHILS % (AUTO) 0.4 % (0.2-1.0); EOSINOPHILS # (AUTO) 0.2 x10^3/uL (0.0-0.2); EOSINOPHILS % (AUTO) 2.7 % (0.9-2.9); LYMPHOCYTES # (AUTO) 2.6 X10^3/uL (1.3-2.9); LYMPHOCYTES % (AUTO) 43.4 % (21.0-51.0); MEAN CORPUSCULAR HEMOGLOBIN 25.9 pg (27.0-34.0); MEAN CORPUSCULAR HGB CONC 33.2 g/dL (33.0-35.0); MEAN CORPUSCULAR VOLUME 78.1 fL (80.0-100.0); MEAN PLATELET VOLUME 6.6 fL (7.4-11.0); MONOCYTES # (AUTO) 0.5 x10^3/uL (0.3-0.8); MONOCYTES % (AUTO) 8.5 % (0.0-13.0); NEUTROPHILS # (AUTO) 2.7 x10^3/uL (2.2-4.8); PLATELET COUNT 370 X10^3/uL (150.0-450.0); RED BLOOD COUNT 4.61 X10^6/uL (4.7-6.0); RED CELL DISTRIBUTION WIDTH 14.2 % (11.6-16.5); WHITE BLOOD COUNT 6.1 X10^3/uL (3.6-10.0)
[2016-11-12] MEDS ORDERED: MERREM VIAL 1,000 MG in NS 100 ML IV 100 ML IV SCH (06:42)
[2016-11-12 07:17] LABS: ALANINE AMINOTRANSFERASE 31 Units/L (12-78); ALBUMIN 2.6 g/dL (3.4-5.0); ALKALINE PHOSPHATASE 52 Units/L (46-116); ASPARTATE AMINO TRANSFERASE 37 Units/L (15-37); BLOOD UREA NITROGEN 21 mg/dL (7-18); CALCIUM 8.7 mg/dL (8.5-10.1); CARBON DIOXIDE 30.7 mmol/L (21-32); CHLORIDE 107 mmol/L (98-107); COR CA(FOR HYPOALB) 9.8 mg/dL (8.5-10.1); COR NA(FOR HYPERGLY) 144 mmol/L (136-145); CREATININE 0.94 mg/dL (0.70-1.30); GLUCOSE 144 mg/dL (65-99); SODIUM 143 mmol/L (136-145); TOTAL PROTEIN 6.5 g/dL (6.4-8.2); eGFR BLACK RACES > 60 (>60); eGFR NON BLACK RACES > 60 (>60)
[2016-11-12 07:47] LABS: HYPOCHROMASIA SLIGHT; PLATELET MORPHOLOGY COMMENT NORMAL (NORMAL)
[2016-11-12] MEDS ORDERED: GLUCOPHAGE ONE (08:24)
[2016-11-12] MEDS: LOVENOX INJ 40 MG SYR SC SCH (08:32)
[2016-11-12] MEDS: ZINC SULFATE PO SCH (08:32)
[2016-11-12] MEDS: FLOMAX PO SCH (08:32)
[2016-11-12] MEDS: GLUCOPHAGE PO SCH (08:33)
[2016-11-12] MEDS: ZESTRIL TAB 40 MG PO SCH (08:33)
[2016-11-12] MEDS: SYNTHROID 50 mcg TAB PO SCH (08:33)
[2016-11-12] MEDS: JUVEN PO SCH (08:33)
[2016-11-12] MEDS: VITAMIN C PO SCH (08:33)
[2016-11-12] MEDS: HUMALOG SC SCH (08:34)
[2016-11-12 09:41] VITALS: BP 141/71
[2016-11-13] MEDS ORDERED: NS 500 ML IV 500 ML IV ONE (12:59)
== END 2016-11-12 11:30 | disposition home or self-care (01) | DRG 540 ==
LOC: ER 20:54 → UNDOADMIN 11-06 01:29 → MED/SURG 11-06 01:29
PROVIDERS: ADMIT Obstetrics & Gynecology Obstetrics; ATTEND Internal Medicine
PROC: 05HC33Z Insertion of Infusion Device into Left Basilic Vein, Percutaneous Approach (ICD-10-PCS; principal; 2016-11-11)
PROC: B54NZZA Ultrasonography of Left Upper Extremity Veins, Guidance (ICD-10-PCS; 2016-11-11)
DX: M86.172 Other acute osteomyelitis, left ankle and foot (principal); L03.116 Cellulitis of left lower limb; L03.311 Cellulitis of abdominal wall; E11.621 Type 2 diabetes mellitus with foot ulcer; E11.65 Type 2 diabetes mellitus with hyperglycemia; N18.3 Chronic kidney disease, stage 3 (moderate); D50.8 Other iron deficiency anemias; E78.2 Mixed hyperlipidemia; M13.89 Other specified arthritis, multiple sites; Z86.711 Personal history of pulmonary embolism; B95.62 Methicillin resistant Staphylococcus aureus infection as the cause of diseases classified elsewhere; K21.9 Gastro-esophageal reflux disease without esophagitis; T80.89XA Other complications following infusion, transfusion and therapeutic injection, initial encounter; I12.9 Hypertensive chronic kidney disease with stage 1 through stage 4 chronic kidney disease, or unspecified chronic kidney disease; Z79.4 Long term (current) use of insulin
CPT/HCPCS: 36415; 71010; 73630; 73721; 80048; 80053; 80076; 80202; 81001; 82150; 82565; 83036; 83605; 83690; 85002; 85025; 85378; 85610; 85652; 85730; 86140; 87040; 87070; 87075; 87077; 87186; 87205; 93005; 93971; 96365; 96374; 99284; A4216; A4222; 1956; J1650; J1815; J1817; J2001; J2185; J2270; J3370

== ENCOUNTER → 2016-11-24 | Outpatient (CLI) | payer BC ==
[2016-11-17 19:41] VITALS: BP 153/83
[~2016-11-24] MED LIST: LEVAQUIN PREMIX IV 750 MG 750 MG/150 ML BAG IV ONE
[2016-11-24 18:51] VITALS: BMI 29.0
== END ==
LOC: OUTPT REF 17:35
PROVIDERS: ATTEND Internal Medicine
DX: Z79.899 Other long term (current) drug therapy (principal); M86.8X7 Other osteomyelitis, ankle and foot
CPT/HCPCS: 96365; 96374; J1956

== ENCOUNTER 2016-11-26 12:25 | Outpatient (CLI) | payer BC ==
[2016-11-17 19:41] VITALS: BP 153/83
[2016-11-26] MEDS ORDERED: LEVAQUIN PREMIX IV 750 MG 750 MG/150 ML BAG IV SCH (14:00)
== END 2016-11-26 15:00 | disposition home or self-care (01) ==
LOC: ER 12:25
PROVIDERS: ATTEND Internal Medicine
DX: Z79.899 Other long term (current) drug therapy (principal); M86.8X7 Other osteomyelitis, ankle and foot; Z48.00 Encounter for change or removal of nonsurgical wound dressing
CPT/HCPCS: 96365; 96374; J1956

== ENCOUNTER → 2016-12-01 | Outpatient (CLI) | payer BC ==
[2016-11-17 19:41] VITALS: BP 153/83
[2016-12-01 17:42] VITALS: BMI 30.2
== END ==
LOC: OUTPT REF 17:10
PROVIDERS: ATTEND Internal Medicine
DX: Z79.899 Other long term (current) drug therapy (principal); M86.8X7 Other osteomyelitis, ankle and foot
CPT/HCPCS: 96365; 96374; J1956

== ENCOUNTER → 2017-01-09 | Outpatient (CLI) | payer OTHER ==
[2016-12-20 21:02] VITALS: BP 129/76
--- NOTE | 2017-01-09 17:56 | VAS ---
HISTORY: Pain Study: Bilateral lower extremity venous Doppler studies. Comparison: 11/06/2016 TECHNIQUE: Multiple guerrero scale and color flow Doppler images of the deep venous system were obtaine d of the right and left lower extremity. FINDINGS: The deep venous system of the right and left lower extremities were evaluated from the level of the common femoral vein through the popliteal vein. Normal color flow and augmentation can be observed. In addition, normal compression is seen throughout the deep venous system. IMPRESSION: No DVT identified. This is unchanged from the prior study. Reported By:
== END ==
LOC: RAD 15:49
PROVIDERS: ATTEND Obstetrics & Gynecology Obstetrics
DX: R60.0 Localized edema (principal)
CPT/HCPCS: 93970

== ENCOUNTER 2017-12-03 10:14 | Inpatient (IN) | payer BC ==
--- NOTE | 2017-12-03 11:22 | DR.EXTPAIN ---
HPI - Time seen Time seen: 11:00 - PCP Primary Care Physician: MELIA TY - Complaint/Symptoms Chief Complaint:: PT C/O HAVING SOME SWELLING TO HIS LEFT FOOT AND PT SAW DENG ON MONDAY AND HE WAS TOLD TO PROB FOOT UP AND HE WAS PLACED ON BACTRIM AND PT C/O PUTTING HIS LEFT FOOT IN WATER AND PT HAS BLISTERS TO THE TOP OF HIS LEFT FOOT AND PT HAS REDNESS TO THE POSTERIOR FOOT UP BY TOES REDNESS NOTED AND AN OPEN AREA,, BR - Nurses notes reviewed Nurses Notes Review: Yes - Source History Provided: Patient - Mode of arrival Mode of Arrival: Ambulatory - Timing Onset of Chief Complaint: 11/26/17 PMH - PMH Past Medical History: Yes Past Medical History: Diabetes, Hypertension, Hypothyroidism Past Surgical History: Yes Surgical History: Ortho Surgery - Family History History of Family Medical Conditions: Yes Family Medical History: CT, Hypertension - Social History Does patient currently use any type of tobacco product: No Have you used tobacco products in the last 12 months: No Type of Tobacco Use: None Does any household member use tobacco: No Alcohol Use: None Do you use any recreational Drugs:: No Lives With: Family Lives Where: Home - infectious screening In the last 2 months have you had wt loss of >10#?: NO Have you had fever, night sweats or hemotysis?: No Have you traveled outside the country in the last 6 months?: No Isolation: Standard ROS - Review of Systems Constitutional: No Symptoms Reported Eyes: No Symptoms Reported ENTM: No Symptoms Reported Respiratoy: No Symptoms Reported Cardiovascular: No Symptoms Reported Gastrointestinal/Abdominal: No Symptoms Reported Genitourinary: No Symptoms Reported Neurological: No Symptoms Reported Musculoskeletal: Left, Foot (swelling with pustule) Integumentary: Other (swelling and erythema lt. foot.) Hematologic/Lymphatic: No Symptoms Reported Endocrine: No Symptoms Reported Psychiatric: No Symptoms Reported All Other Systems: Reviewed and Negative PE - Vital Signs Vitals: Temperature 98.2 F Pulse Rate 73 Respiratory Rate 18 Blood Pressure [Right Arm] 129/76 Blood Pressure [Left Arm] 161/73 Blood Pressure 150/67 O2 Sat by Pulse Oximetry 99 - General Limitations: No Limitations General Appearance: Alert, In No Apparent Distress - Head Head Exam: Normal Inspection - Eyes Eye exam: Normal Appearance - ENT ENT Exam: Normal Exam - Neck Neck Exam: Normal Inspection - Chest Chest Inspection: Normal Inspection - Respiratory Respiratory Exam: Normal Lung Sounds Bilat - Cardiovascular Cardiovascular Exam: Regular Rate, Normal Rhythm, +S1, +S2 - Abdominal Exam Abdominal Exam: Normal Inspection, Normal Bowel Sounds, Soft - Upper Extremities Shoulder Exam: Normal Inspection, Full ROM Arm Exam: Normal Inspection, Full ROM - Lower Extremities Knee Exam: Normal Inspection, Full ROM Lower Leg Exam: Normal Inspection, Full ROM Ankle Exam: Normal Inspection, Full ROM Foot/Toe Exam: Swelling (distal 3rd of left foot to toes), Dislocation (diestal 3rd of ledt foot), Other (blister on toes. There is a moderate pustule on the dorsal surface of the left foot, involving the 2nd, 3rd and 4th MTP joints and the tip of the 4th toe. ) Neurovascular/Tendon Exam: Normal Capillary Refill Gait Exam: Not Tested/Not Observed Course - Consultation Consultation Comments: I spoke with Dr. Handy about the p's. presentation and findings. He agreed with recommendation for in-house pt. - Education/Counseling Education/Counseling: Patient, Family, Education, Counseling Educated On: Treatment, Diagnosis, Prognosis, Needs for Follow Up ROR - Labs Reviewed Result Diagrams: 12/03/17 11:42 12/03/17 11:42 Laboratory: WBC 5.5 X10^3/uL (3.6-10.0) 12/03/17 11:42 RBC 4.77 X10^6/uL (4.7-6.0) 12/03/17 11:42 Hgb 13.0 g/dL (13.5-18.0) L 12/03/17 11:42 Hct 38.4 % (42.0-54.0) L 12/03/17 11:42 MCV 80.5 fL (80.0-100.0) 12/03/17 11:42 MCH 27.3 pg (27.0-34.0) 12/03/17 11:42 MCHC 33.9 g/dL (33.0-35.0) 12/03/17 11:42 RDW 14.1 % (11.6-16.5) 12/03/17 11:42 Plt Count 280 X10^3/uL (150.0-450.0) 12/03/17 11:42 MPV 6.9 fL (7.4-11.0) L 12/03/17 11:42 Neut % (Auto) 54.9 % (42.0-75.0) 12/03/17 11:42 Lymph % (Auto) 33.2 % (21.0-51.0) 12/03/17 11:42 [place]ee % (Auto) 7.9 % (0.0-13.0) 12/03/17 11:42 Eos % (Auto) 2.7 % (0.9-2.9) 12/03/17 11:42 Baso % (Auto) 1.3 % (0.2-1.0) H 12/03/17 11:42 Neut # (Auto) 3.0 x10^3/uL (2.2-4.8) 12/03/17 11:42 Lymph # (Auto) 1.8 X10^3/uL (1.3-2.9) 12/03/17 11:42 [place]ee # (Auto) 0.4 x10^3/uL (0.3-0.8) 12/03/17 11:42 Eos # (Auto) 0.1 x10^3/uL (0.0-0.2) 12/03/17 11:42 Baso # (Auto) 0.1 X10^3/uL (0.0-0.1) 12/03/17 11:42 Absolute Nucleated RBC 0.0 /100WBC 12/03/17 11:42 Sodium 138 mmol/L (136-145) 12/03/17 11:42 Corrected Sodium 138 mmol/L (136-145) 12/03/17 11:42 Potassium 5.2 mmol/L (3.5-5.1) H 12/03/17 11:42 Chloride 104 mmol/L (98-107) 12/03/17 11:42 Carbon Dioxide 27.3 mmol/L (21-32) 12/03/17 11:42 BUN 25 mg/dL (7-18) H 12/03/17 11:42 Creatinine 1.29 mg/dL (0.70-1.30) 12/03/17 11:42 Est GFR (MDRD) Af Amer > 60 (>60) 12/03/17 11:42 Est GFR (MDRD) Non-Af 60 (>60) 12/03/17 11:42 Glucose 120 mg/dL (65-99) H 12/03/17 11:42 Calcium 9.1 mg/dL (8.5-10.1) 12/03/17 11:42 Corrected Calcium TNP 12/03/17 11:42 Total Bilirubin 0.60 mg/dL (0.2-1.0) 12/03/17 11:42 AST 29 Units/L (15-37) 12/03/17 11:42 ALT 30 Units/L (12-78) 12/03/17 11:42 Alkaline Phosphatase 86 Units/L (46-116) 12/03/17 11:42 Total Protein 8.1 g/dL (6.4-8.2) 12/03/17 11:42 Albumin 3.6 g/dL (3.4-5.0) 12/03/17 11:42 Globulin 4.5 g/dL (2.5-4.5) 12/03/17 11:42 Albumin/Globulin Ratio 0.8 Ratio (1.1-2.1) L 12/03/17 11:42 Procedures - Incision and Drainage Site: Plantar surface 3rd Lt. MTP joint Blade Size: 11 I & D Procedure: betadine prep, sterile drapes applied, sterile dressing applied Progress: A 1/2 inch vertical incision was made. Only light serosanguous drainage was coming out. As the incision was being made I coincidentally encountered a piece of glass and this was taken out. - Diagnosis Discharge Problem: Cellulitis of left foot, Foreign body foot/toe - Discharge Plan Disposition: ADMITTED INPATIENT Condition: Stable - Follow ups/Referrals Follow ups/Referrals: Renaldo New [Primary Care Provider] - 3 days - Instructions Instructions: Cellulitis, Adult, [id number]
[2017-12-03] MEDS ORDERED: VANCOMYCIN HCL 1 GM VIAL 1 GM in D5W 250 ML IV 250 ML IV ONE (11:24)
[2017-12-03] MEDS ORDERED: XYLOCAINE 1 % (PLAIN) ONE (11:31)
--- NOTE | 2017-12-03 11:42 | RAD ---
HISTORY: Pain Study: Left foot series Comparison: 11/05/2016 Findings: There is moderate joint space narrowing throughout the digits and tarsal region. No fracture or dislo cation is seen. The tarsal bones are intact. There is no periosteal reaction. The joint spaces are in tact. There is a 6 mm radiopaque density in the soft tissues along the base of the 2nd toe laterally which was not seen previously. There is mild soft tissue swelling along the dorsum of foot which is l ess prominent. IMPRESSION: Questionable 6 mm foreign body in the soft tissues along the base of the 2nd toe which was not seen p reviously Mild osteoarthritic changes throughout the digits and along the midfoot with no acute bony abnormalit y seen. Mild soft tissue swelling along the dorsum of the foot. Reported By:
[2017-12-03] MEDS ORDERED: NS 250 ML IV 250 ML IV ONE (11:44)
[2017-12-03] MEDS ORDERED: VANCOMYCIN HCL 1 GM VIAL ONE (11:44)
[2017-12-03 11:57] LABS: BASOPHILS # (AUTO) 0.1 X10^3/uL (0.0-0.1); BASOPHILS % (AUTO) 1.3 % (0.2-1.0); EOSINOPHILS # (AUTO) 0.1 x10^3/uL (0.0-0.2); EOSINOPHILS % (AUTO) 2.7 % (0.9-2.9); HEMATOCRIT 38.4 % (42.0-54.0); LYMPHOCYTES # (AUTO) 1.8 X10^3/uL (1.3-2.9); LYMPHOCYTES % (AUTO) 33.2 % (21.0-51.0); MEAN CORPUSCULAR HEMOGLOBIN 27.3 pg (27.0-34.0); MEAN CORPUSCULAR HGB CONC 33.9 g/dL (33.0-35.0); MEAN CORPUSCULAR VOLUME 80.5 fL (80.0-100.0); MEAN PLATELET VOLUME 6.9 fL (7.4-11.0); MONOCYTES # (AUTO) 0.4 x10^3/uL (0.3-0.8); MONOCYTES % (AUTO) 7.9 % (0.0-13.0); NEUTROPHILS % (AUTO) 54.9 % (42.0-75.0); PLATELET COUNT 280 X10^3/uL (150.0-450.0); RED BLOOD COUNT 4.77 X10^6/uL (4.7-6.0); RED CELL DISTRIBUTION WIDTH 14.1 % (11.6-16.5); WHITE BLOOD COUNT 5.5 X10^3/uL (3.6-10.0)
[2017-12-03 12:04] LABS: ALANINE AMINOTRANSFERASE 30 Units/L (12-78); ALBUMIN 3.6 g/dL (3.4-5.0); ALKALINE PHOSPHATASE 86 Units/L (46-116); ASPARTATE AMINO TRANSFERASE 29 Units/L (15-37); BLOOD UREA NITROGEN 25 mg/dL (7-18); CALCIUM 9.1 mg/dL (8.5-10.1); CARBON DIOXIDE 27.3 mmol/L (21-32); CHLORIDE 104 mmol/L (98-107); COR NA(FOR HYPERGLY) 138 mmol/L (136-145); CREATININE 1.29 mg/dL (0.70-1.30); SODIUM 138 mmol/L (136-145); TOTAL PROTEIN 8.1 g/dL (6.4-8.2); eGFR BLACK RACES > 60 (>60); eGFR NON BLACK RACES 60 (>60)
[2017-12-03] MEDS ORDERED: VANCOMYCIN HCL 1 GM VIAL 1 GM in D5W 250 ML IV 250 ML IV SCH (14:35)
[2017-12-03] MEDS ORDERED: HumuLIN R SUBCUT PRN (14:36)
[2017-12-03 16:23] VITALS: BMI 32.5
[2017-12-03] MEDS: NS 1000 ML 1,000 ML IV SCH (17:15)
[2017-12-03] MEDS: HumaLOG SC SCH (17:18)
[2017-12-03] MEDS: LEVAQUIN PREMIX IV 750 MG 750 MG/150 ML BAG IV SCH (20:05)
[2017-12-03] MEDS: LEVEMIR SC SCH (21:32)
[2017-12-03] MEDS: VANCOMYCIN HCL 1 GM VIAL 1 GM in D5W 250 ML IV 250 ML IV SCH (22:22)
[2017-12-04] MEDS: NS 1000 ML 1,000 ML IV SCH (05:18)
[2017-12-04 06:18] LABS: BASOPHILS % (AUTO) 0.7 % (0.2-1.0); EOSINOPHILS # (AUTO) 0.2 x10^3/uL (0.0-0.2); EOSINOPHILS % (AUTO) 3.7 % (0.9-2.9); HEMATOCRIT 36.9 % (42.0-54.0); HEMOGLOBIN 12.8 g/dL (13.5-18.0); LYMPHOCYTES # (AUTO) 1.6 X10^3/uL (1.3-2.9); LYMPHOCYTES % (AUTO) 38.1 % (21.0-51.0); MEAN CORPUSCULAR HEMOGLOBIN 27.7 pg (27.0-34.0); MEAN CORPUSCULAR HGB CONC 34.7 g/dL (33.0-35.0); MEAN CORPUSCULAR VOLUME 79.6 fL (80.0-100.0); MEAN PLATELET VOLUME 7.2 fL (7.4-11.0); MONOCYTES # (AUTO) 0.4 x10^3/uL (0.3-0.8); MONOCYTES % (AUTO) 10.1 % (0.0-13.0); NEUTROPHILS % (AUTO) 47.4 % (42.0-75.0); PLATELET COUNT 261 X10^3/uL (150.0-450.0); RED BLOOD COUNT 4.63 X10^6/uL (4.7-6.0); RED CELL DISTRIBUTION WIDTH 14.3 % (11.6-16.5); WHITE BLOOD COUNT 4.3 X10^3/uL (3.6-10.0)
[2017-12-04] MEDS: LEVEMIR SC SCH ×2 (06:24→09:34)
[2017-12-04 06:35] LABS: ALANINE AMINOTRANSFERASE 29 Units/L (12-78); ALKALINE PHOSPHATASE 78 Units/L (46-116); ASPARTATE AMINO TRANSFERASE 27 Units/L (15-37); BLOOD UREA NITROGEN 18 mg/dL (7-18); CALCIUM 8.4 mg/dL (8.5-10.1); CARBON DIOXIDE 26.9 mmol/L (21-32); CHLORIDE 104 mmol/L (98-107); COR CA(FOR HYPOALB) 9.2 mg/dL (8.5-10.1); COR NA(FOR HYPERGLY) 142 mmol/L (136-145); CREATININE 1.18 mg/dL (0.70-1.30); SODIUM 139 mmol/L (136-145); TOTAL PROTEIN 7.1 g/dL (6.4-8.2); eGFR BLACK RACES > 60 (>60); eGFR NON BLACK RACES > 60 (>60)
[2017-12-04] MEDS ORDERED: GLUCOPHAGE ONE (08:12)
[2017-12-04] MEDS ORDERED: VITAMIN D (1.25MG) PO SCH (09:00)
[2017-12-04] MEDS: VANCOMYCIN HCL 1 GM VIAL 1 GM in D5W 250 ML IV 250 ML IV SCH ×2 (09:33→22:54)
[2017-12-04] MEDS: ECOTRIN TAB 325 MG PO SCH (09:34)
[2017-12-04] MEDS: BACTRIM DS TAB PO SCH (09:34)
[2017-12-04] MEDS: GLUCOPHAGE PO SCH (09:34)
[2017-12-04] MEDS: FLOMAX PO SCH (09:34)
[2017-12-04] MEDS: PROSCAR PO SCH (09:34)
[2017-12-04] MEDS: COZAAR PO SCH (09:34)
[2017-12-04] MEDS: PRASUGREL HCL PO SCH (09:36)
--- NOTE | 2017-12-04 09:45 | PCM.PROG ---
Progress Note - Progress Note for Day of Date: 12/04/17 - Subjective Subjective: WAS ADMITTED FOR CELLULITIS TO THE LEFT FOOT. TODAY, HE IS ALERT AND ORIENTED, LYING IN BED ON MORNING ROUNDS. HE COMPLAINS OF PAIN AND SWELLING TO THE LEFT FOOT. ON EXAMINATION, HEART IS REGULAR IN RATE AND RHYTHM. BILATERAL LUNGS ARE CLEAR TO AUSCULTATION. ABDOMEN IS ROUND, SOFT, AND NON- TENDER WITH NORMAL BOWEL SOUNDS NOTED IN ALL QUADRANTS. LEFT FOOT IS NOTED WITH ERYTHEMA AND EDEMA. THERE ARE TWO BLISTERS NOTED TO THE TOP OF HIS LEFT FOOT WELL REDNESS AND AN OPEN WOUND TO THE BOTTOM OF THE FOOT. CHARGE NURSE REPORTS THAT CONSULTED WITH PATIENT YESTERDAY AND REMOVED A PIECE OF GLASS FROM THE BOTTOM OF PATIENTS FOOT. THERE IS NORMAL RANGE OF MOTION NOTED TO ALL EXTREMITIES. HIS VITALS THIS MORNING ARE 97.6-64-20-97%-146/70. LABS WERE OBTAINED. ABNORMAL LAB VALUES INCLUDE THE FOLLOWING: RBC 4.63, HGB 12.8, HCT 36.9, GLUCOSE 244, CALCIUM 8.4, ALBUMIN 3.0. HE IS CURRENTLY RECEIVING VANCOMYCIN 1GM IV Q12H WELL BACTRIM DS 1 TABLET DAILY. HE IS SCHEDULED FOR AN MRI WITH AND WITHOUT CONTRAST OF THE LEFT FOOT/LEG TODAY. WE WILL CONTINUE WITH CURRENT PLAN OF CARE TODAY. WE PLAN TO FOLLOW UP WITH AM LABS AND CONTINUE TO MONITOR PATIENT. - Past Medical Family Social History Past Med/Fam/Surg Hx: No changes since H&P Allergies: Allergies adhesive tape Adverse Reaction (Verified 12/03/17 12:14) - Review of Systems ROS: No change since H&P - Vital Signs and I&O's Vital Signs: Temperature 97.6 F Pulse Rate [Right Brachial] 64 Pulse Rate 73 Respiratory Rate 20 Blood Pressure [Right Arm] 146/70 Blood Pressure [Left Arm] 161/73 Blood Pressure 150/67 O2 Sat by Pulse Oximetry 97 Intake and Output: Intake & Output 12/01/17 12/02/17 12/03/17 12/04/17 11:59 11:59 11:59 11:59 Intake Total 1760 Balance 1760 - Physical Exam Oriented: Normal Eyes: Normal Ear: Normal Nose: Normal Throat: Normal Respiratory: Normal Cardiovascular: Normal : Normal Auscultation: Bowel Sounds: Normal Palpation: Normal Tenderness: Normal Skin: Red, Tender, Hot, Wound Musculoskeletal: Left, Foot, Swelling, Tender Psychiatric: Normal Mood Description: Calm Affect: Normal Speech Pattern: Clear, Appropriate - Laboratory and Diagnostics Result Diagrams: 12/04/17 05:25 12/04/17 05:25 Labs: Laboratory WBC 4.3 X10^3/uL (3.6-10.0) 12/04/17 05:25 RBC 4.63 X10^6/uL (4.7-6.0) L 12/04/17 05:25 Hgb 12.8 g/dL (13.5-18.0) L 12/04/17 05:25 Hct 36.9 % (42.0-54.0) L 12/04/17 05:25 MCV 79.6 fL (80.0-100.0) L 12/04/17 05:25 MCH 27.7 pg (27.0-34.0) 12/04/17 05:25 MCHC 34.7 g/dL (33.0-35.0) 12/04/17 05:25 RDW 14.3 % (11.6-16.5) 12/04/17 05:25 Plt Count 261 X10^3/uL (150.0-450.0) 12/04/17 05:25 MPV 7.2 fL (7.4-11.0) L 12/04/17 05:25 Neut % (Auto) 47.4 % (42.0-75.0) 12/04/17 05:25 Lymph % (Auto) 38.1 % (21.0-51.0) 12/04/17 05:25 Nicholas % (Auto) 10.1 % (0.0-13.0) 12/04/17 05:25 Eos % (Auto) 3.7 % (0.9-2.9) H 12/04/17 05:25 Baso % (Auto) 0.7 % (0.2-1.0) 12/04/17 05:25 Neut # (Auto) 2.0 x10^3/uL (2.2-4.8) L 12/04/17 05:25 Lymph # (Auto) 1.6 X10^3/uL (1.3-2.9) 12/04/17 05:25 Nicholas # (Auto) 0.4 x10^3/uL (0.3-0.8) 12/04/17 05:25 Eos # (Auto) 0.2 x10^3/uL (0.0-0.2) 12/04/17 05:25 Baso # (Auto) 0.0 X10^3/uL (0.0-0.1) 12/04/17 05:25 Absolute Nucleated RBC 0.0 /100WBC 12/04/17 05:25 Sodium 139 mmol/L (136-145) 12/04/17 05:25 Corrected Sodium 142 mmol/L (136-145) 12/04/17 05:25 Potassium 5.0 mmol/L (3.5-5.1) 12/04/17 05:25 Chloride 104 mmol/L (98-107) 12/04/17 05:25 Carbon Dioxide 26.9 mmol/L (21-32) 12/04/17 05:25 BUN 18 mg/dL (7-18) 12/04/17 05:25 Creatinine 1.18 mg/dL (0.70-1.30) 12/04/17 05:25 Est GFR (MDRD) Af Amer > 60 (>60) 12/04/17 05:25 Est GFR (MDRD) Non-Af > 60 (>60) 12/04/17 05:25 Glucose 244 mg/dL (65-99) H 12/04/17 05:25 POC Glucose (mg/dL) 204 mg/dL (65-99) H 12/04/17 05:33 Calcium 8.4 mg/dL (8.5-10.1) L 12/04/17 05:25 Corrected Calcium 9.2 mg/dL (8.5-10.1) 12/04/17 05:25 Total Bilirubin 0.70 mg/dL (0.2-1.0) 12/04/17 05:25 AST 27 Units/L (15-37) 12/04/17 05:25 ALT 29 Units/L (12-78) 12/04/17 05:25 Alkaline Phosphatase 78 Units/L (46-116) 12/04/17 05:25 Total Protein 7.1 g/dL (6.4-8.2) 12/04/17 05:25 Albumin 3.0 g/dL (3.4-5.0) L 12/04/17 05:25 Globulin 4.1 g/dL (2.5-4.5) 12/04/17 05:25 Albumin/Globulin Ratio 0.7 Ratio (1.1-2.1) L 12/04/17 05:25 - Plan (1) Cellulitis of left foot Status: Acute Plan: VANCOMYCIN 1GM IV Q12H, BACTRIM DS 1 TABLET DAILY, WOUND CARE, MRI WITH AND WITHOUT CONTRAST TODAY, CONTINUE TO MONITOR (2) Foreign body foot/toe Status: Resolved Plan: GLASS REMOVED FROM FOOT BY , CONTINUE TO MONITOR
[2017-12-04] MEDS: HumaLOG SC SCH ×3 (09:48→18:31)
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
[2017-12-04] MEDS ORDERED: SYNTHROID 88 mcg TAB PO SCH (16:30)
[2017-12-04] MEDS ORDERED: SYNTHROID 50 mcg TAB PO SCH (16:30)
[2017-12-04 20:43] LABS: CREATININE 1.48 mg/dL (0.70-1.30); VANCOMYCIN,TROUGH 8.8 ug/mL (15-20)
[2017-12-04] MEDS ORDERED: PHARMACY COMMENT IV SCH (20:45)
[2017-12-04] MEDS ORDERED: LEVEMIR SC SCH (21:00)
[2017-12-04] MEDS: LEVAQUIN PREMIX IV 750 MG 750 MG/150 ML BAG IV SCH (21:12)
--- NOTE | 2017-12-04 22:33 | DR.CONSULT ---
Consult - Consultation for Day of: Date: 12/04/17 - Chief Complaint Chief Complaint: left foot blisteers - Allergies Allergies/Adverse Reactions: Allergies Allergy/AdvReac Type Severity Reaction Status Date / Time adhesive tape AdvReac Verified 12/03/17 12:14 - History of Present Illness History of Present Illness: he is a known case of diabetic neuropathy. seen by me in the past for left foot infection almost a year ago. trated with antibiotics and got better. recently soaked his foot in hot epson salt bath and noticed blisters. he has minimal sensation and he did not feel any heat and noticed blisters. was seen in the ER. XR showed a foreign body in the foot which was removed by the ER doctor. pt does not know how he got the glass peice in his foot. I am consulted for the possible osteomyelitis. MRI showes no signs of osteomyelitis. seen is blisters on the left forefoot. not muc signs of cellulits. - Past Medical History Past Medical History: Diabetes, Hypertension, Hypothyroidism Additional Medical History: diabetic neuropathy. has very less sensation in the left foot. - Past Surgical History Surgical History: Ortho Surgery - Family History Family Medical History: [place], Hypertension - Social History Does patient currently use any type of tobacco product: No Have you used tobacco products in the last 12 months: No Type of Tobacco Use: None Does any household member use tobacco: No Alcohol Use: None Drug Use: None - Medications Home Medications: Ergocalciferol (Vitamin D2) [Vitamin D2] 1 tab PO WEEKLY 12/03/17 [History Confirmed 12/03/17] Finasteride [Proscar] 1 tab PO DAILY 12/03/17 [History Confirmed 12/03/17] Levothyroxine Sodium [SYNTHROID 88 mcg *] 1 tab PO DAILY 12/03/17 [History Confirmed 12/03/17] Losartan Potassium [LOSARTAN POTASSIUM 50 MG *] 1 tab PO DAILY 12/03/17 [ History Confirmed 12/03/17] Prasugrel HCl 1 tab PO DAILY 12/03/17 [History Confirmed 12/03/17] Sulfamethoxazole-Trimethoprim [BACTRIM DS TAB 800/160 MG *] 1 tab PO DAILY 12/03 [History Confirmed 12/03/17] - Physical Exam Vital Signs: Temperature 97.8 F Pulse Rate [Right Brachial] 63 Pulse Rate 73 Respiratory Rate 20 Blood Pressure [Right Arm] 135/74 Blood Pressure [Left Arm] 161/73 Blood Pressure 150/67 O2 Sat by Pulse Oximetry 97 - Plan Plan: no active orthopedic intervention as no steomyelitis.
[2017-12-05 06:02] LABS: BASOPHILS % (AUTO) 0.8 % (0.2-1.0); EOSINOPHILS # (AUTO) 0.1 x10^3/uL (0.0-0.2); EOSINOPHILS % (AUTO) 2.8 % (0.9-2.9); HEMATOCRIT 36.4 % (42.0-54.0); HEMOGLOBIN 12.5 g/dL (13.5-18.0); LYMPHOCYTES % (AUTO) 39.6 % (21.0-51.0); MEAN CORPUSCULAR HEMOGLOBIN 27.4 pg (27.0-34.0); MEAN CORPUSCULAR HGB CONC 34.3 g/dL (33.0-35.0); MEAN CORPUSCULAR VOLUME 79.8 fL (80.0-100.0); MEAN PLATELET VOLUME 7.2 fL (7.4-11.0); MONOCYTES # (AUTO) 0.5 x10^3/uL (0.3-0.8); NEUTROPHILS # (AUTO) 2.4 x10^3/uL (2.2-4.8); NEUTROPHILS % (AUTO) 47.8 % (42.0-75.0); PLATELET COUNT 255 X10^3/uL (150.0-450.0); RED BLOOD COUNT 4.57 X10^6/uL (4.7-6.0); WHITE BLOOD COUNT 5.1 X10^3/uL (3.6-10.0)
[2017-12-05] MEDS: HumaLOG SC SCH ×2 (06:09→09:30)
[2017-12-05 06:31] LABS: ALANINE AMINOTRANSFERASE 26 Units/L (12-78); ALBUMIN 2.9 g/dL (3.4-5.0); ALKALINE PHOSPHATASE 70 Units/L (46-116); ASPARTATE AMINO TRANSFERASE 20 Units/L (15-37); BLOOD UREA NITROGEN 19 mg/dL (7-18); CALCIUM 8.3 mg/dL (8.5-10.1); CARBON DIOXIDE 25.9 mmol/L (21-32); CHLORIDE 106 mmol/L (98-107); COR CA(FOR HYPOALB) 9.2 mg/dL (8.5-10.1); COR NA(FOR HYPERGLY) 141 mmol/L (136-145); CREATININE 1.24 mg/dL (0.70-1.30); SODIUM 139 mmol/L (136-145); TOTAL PROTEIN 6.9 g/dL (6.4-8.2); eGFR BLACK RACES > 60 (>60); eGFR NON BLACK RACES > 60 (>60)
[2017-12-05] MEDS ORDERED: LEVEMIR SC SCH (07:00)
[2017-12-05] MEDS ORDERED: GLUCOPHAGE ONE (09:20)
[2017-12-05] MEDS: VANCOMYCIN HCL 1 GM VIAL 1 GM in D5W 250 ML IV 250 ML IV SCH (09:28)
[2017-12-05] MEDS: BACTRIM DS TAB PO SCH (09:34)
[2017-12-05] MEDS: ECOTRIN TAB 325 MG PO SCH (09:34)
[2017-12-05] MEDS: PROSCAR PO SCH (09:35)
[2017-12-05] MEDS: COZAAR PO SCH (09:35)
[2017-12-05] MEDS: GLUCOPHAGE PO SCH (09:35)
[2017-12-05] MEDS: FLOMAX PO SCH (09:35)
[2017-12-05] MEDS: PRASUGREL HCL PO SCH (09:36)
[2017-12-05 12:30] VITALS: BP 153/75
== END 2017-12-05 11:45 | disposition home or self-care (01) | DRG 603 ==
LOC: ER 10:30 → MED/SURG 14:32
PROVIDERS: ADMIT Internal Medicine; ATTEND Internal Medicine
PROC: 0JCR0ZZ Extirpation of Matter from Left Foot Subcutaneous Tissue and Fascia, Open Approach (ICD-10-PCS; principal; 2017-12-03)
DX: L03.116 Cellulitis of left lower limb (principal); L02.612 Cutaneous abscess of left foot; M79.5 Residual foreign body in soft tissue; E11.65 Type 2 diabetes mellitus with hyperglycemia; N40.0 Benign prostatic hyperplasia without lower urinary tract symptoms; E11.40 Type 2 diabetes mellitus with diabetic neuropathy, unspecified; E78.2 Mixed hyperlipidemia
CPT/HCPCS: 36415; 73630; 73720; 80053; 80202; 82565; 85025; 93005; 96365; 96374; 99221; 99283; 99284; A4216; A4222; S0138; 1956; J1817; J1956; J2001; J3370